=== PATIENT | male | born 1955 | race Caucasian/White ===

== ENCOUNTER 2017-06-03 15:28 | Inpatient (IN) ==
--- NOTE | 2017-06-03 16:13 | Emergency Department Report ---
Nausea/Vomiting/Diarrhea HPI - General Chief complaint: Nausea/Vomiting/Diarrhea <Jorge Wharton Josep Dewey 06/05/17 18:08> Stated complaint: flu like symptoms <Jorge Wharton Josep Dewey 06/05/17 18:08> Time Seen by Provider: 06/03/17 16:00 <Iggy Whartonsusy Dewey 06/05/17 18:08> Source: patient <JakenoeParvin 06/03/17 16:13> - History of Present Illness HPI Narrative: Pt states he has had nausea, vomiting, and diarrhea for the last 5 days. States he had sweats and chills this am but has been feeling fine ever since and that he is here for a note for work. 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 Pt drinks alcohol 2X a week, denies tobacco use <Parvin Douglas 06/03/17 18:16> MD complaint: nausea, vomiting, diarrhea, abdominal pain <Parvin Douglas 06/03/17 18:16> Onset (ago): day(s) <Parvin Douglas 06/03/17 18:16> Description of Vomiting: watery <Parvin Douglas 06/03/17 18:16> Description of Diarrhea: water <Parvin Douglas 06/03/17 18:16> Associated Abdominal Pain: Yes <Parvin Douglas 06/03/17 18:16> Location of pain: periumbilical <Parvin Douglas 06/03/17 18:16> Severity: mild <Parvin Douglas 06/03/17 18:16> Severity scale (1-10): 4 <Parvin Douglas 06/03/17 18:16> Quality: cramping, aching <Parvin Douglas 06/03/17 18:16> Consistency: constant <Parvin Douglas 06/03/17 18:16> Relieving factors: none <Parvin Douglas 06/03/17 18:16> Exacerbating factors: none <Parvin Douglas 06/03/17 18:16> Associated symptoms: fever/chills, loss of appetite <Parvin Douglas 18:16> - Related Data Home Medications Medication Instructions Recorded Confirmed Aspirin 325 mg PO DAILY #0 04/19/11 06/03/17 Ascorbic Acid [Vitamin C] 1,000 mg PO DAILY 06/03/17 06/03/17 Cyanocobalamin (Vitamin B-12) 500 mcg SL DAILY 06/03/17 06/03/17 [Vitamin B-12] HydroCHLOROthiazide [Hydrodiuril] 25 mg PO WB 06/03/17 06/03/17 Multivitamin [Multivitamins] 1 cap PO DAILY 06/03/17 06/03/17 Nebivolol [Bystolic] 5 mg PO DAILY 06/03/17 06/03/17 [place]-3/Dha/Epa/Fish Oil [Fish Oil 1,000 mg PO DAILY 06/03/17 06/03/17 1,000 mg Softgel] <Jorge Wharton - 06/05/17 18:08> Allergies Allergy/AdvReac Type Severity Reaction Status Date / Time No Known Allergies Allergy Verified 06/03/17 15:49 <Jorge Wharton - 06/05/17 18:08> Review of Systems All systems: reviewed and negative except as stated <Parvin Douglas 18:16> Constitutional: Reports: fever, chills, weakness <Parvin Douglas 18:16> Eyes: Denies: eye pain <Parvin Douglas 06/03/17 18:16> ENT: Denies: ear pain, throat pain <Parvin Douglas 06/03/17 18:16> Cardiovascular: Denies: chest pain <Parvin Douglas 06/03/17 18:16> Respiratory: Denies: cough <Parvin Douglas 06/03/17 18:16> Gastrointestinal: Reports: abdominal pain, nausea, vomiting, diarrhea < Parvin Douglas 06/03/17 18:16> Musculoskeletal: Denies: back pain <Parvin Douglas 06/03/17 18:16> Neurological: Reports: weakness. Denies: headache <Parvin Douglas 06/03 18:16> Psychiatric: Denies: anxiety <Parvin Douglas 06/03/17 18:16> Endocrine: Reports: fatigue <Parvin Douglas 06/03/17 18:16> [facility] Patient Stated Medical History Other HEENT Yes: GLASSES Hypertension Yes <Jorge Wharton 06/05/17 18:08> - Social History Smoking status: Never smoker <Parvin Douglas 06/03/17 16:13> Physical Exam - Limitations Limitations: no limitations <Parvin Douglas 06/03/17 18:16> - General General appearance: alert, in no apparent distress <Parvin Douglas 06/03 18:16> - Normal Exams: Head:: Normocephalic without trauma <StellaParvin Day 06/03/17 18:16> Eyes:: Pupils are PERRLA w/ EOMI <Parvin Douglas 06/03/17 18:16> Neck:: Full range of motion, without adenopathy <StellaParvin Day 18:16> Chest/Respirations:: Clear all ruby, with good airflow, and symmetry bilaterally <Parvin Douglas 06/03/17 18:16> Cardiovascular:: Regular rate and rhythm, without murmur or gallop, Pulses 2+ all extremities <Parvin Douglas 06/03/17 18:16> Abdomen:: Bowel sounds positive, soft, non-tender, non-distended (c/o epigastric pain which does not change with palpation) <StellaParvin Day 18:16> Musculoskeletal:: No tenderness, or deformity noted, good range of motion, all extremities <Parvin Douglas 06/03/17 18:16> Integumentary:: No rashes <StellaParvin Day 06/03/17 18:16> Neurological:: Patient is alert, and oriented <JakerebeccakatieParvin Day Maco 06/03/17 18:16> Psychiatric:: Patient exhibits, appropriate attention, emotion and affect < StellaParvin Barb 06/03/17 18:16> Course - Consultations Consultation #1: Corrine <Parvin Douglas - 06/03/17 18:16> Time: 17:30 <Parvin Douglas - 06/03/17 18:16> Vital Signs Temperature 99.1 F 06/03/17 15:30 Pulse Rate 80 06/03/17 15:30 Respiratory Rate 20 06/03/17 15:30 Blood Pressure 148/84 H 06/03/17 15:30 Pulse Oximetry 92 06/03/17 15:30 Temperature 97.1 F 06/05/17 14:50 Pulse Rate 82 06/05/17 17:10 Respiratory Rate 16 06/05/17 14:50 Blood Pressure 125/85 06/05/17 14:50 Pulse Oximetry 97 06/05/17 17:10 <Jorge Wharton 06/05/17 18:08> Nausea/Vomiting/Diarrhea - MDM Narrative Medical decision making narrative: Pt history vs family report has varied throughout stay. Pt states he is feeling much better and just needs a note to return to work. reports pt has had a progressively decreasing appetite and increased weakness. Pt reports he has not had any vomiting for the last 3 days and no diarrhea for the last 2 days however he did have an episode of chills and sweats this am but reports feeling much better since that time. Pt has a waxy pale color to his skin tone and continues to regularly have pursed lipped breathing. Pt denies any smoking history or difficulty breathing only reports that he is doing it because he is "tired". Labs reviewed and show opposing results of elevated BUN with low electrolytes and low osmolality. Additional labs ordered based on current results. Discussed pt assessment and diagnostic findings with Dr Castle who will be admitting pt for continued care. <Parvin Douglas 06/03/17 18:16> - Differential Diagnosis Likely: gastroenteritis, clostridium difficile infection, drug-induced nausea and vomiting, dehydration <Parvin Douglas 06/03/17 18:16> - Lab Data Attestation: I reviewed the patient's lab results. <Parvin Douglas 06/03 18:16> Result diagrams: 06/05/17 03:58 06/05/17 03:58 <Jorge Wharton 06/05/17 18:08> Lab Results 06/03/17 06/03/17 06/03/17 Range/Units 16:08 16:13 16:13 WBC 4.8 (4.5-11.0) T/MM3 RBC 4.43 L (4.50-5.90) M/MM3 Hgb 13.9 (13.5-17.5) GM/DL Hct 38.2 L (41-53) % MCV 86.2 (80-100) UM3 MCH 31.4 (26-34) UUG MCHC 36.4 (31-37) GM/DL RDW Std Deviation 37.7 (36.9-50.2) FL Plt Count 124 L (130-400) T/MM3 MPV 10.6 (9.4-12.4) UM3 Immature Gran % (Auto) 0.6 H (0.0-0.5) % Neut % (Auto) 76.0 H (33-66) % Lymph % (Auto) 15.7 L (23-45) % Ada % (Auto) 7.7 (0-9.0) % Eos % (Auto) 0.0 (0-4) % Baso % (Auto) 0.0 (0-2) % Neut # (Auto) 3.6 (1.8-7.7) T/MM3 Lymph # (Auto) 0.8 L (1-4.8) T/MM3 Ada # (Auto) 0.4 (0-0.8) T/MM3 Eos # (Auto) 0.0 (0-0.5) T/MM3 Baso # (Auto) 0.0 (0-0.2) T/MM3 Abs Immat Gran (auto) 0.03 (0.00-0.03) T/MM3 ABG pH (7.350-7.450) ABG pCO2 (34-45) MMHG ABG pO2 (80-100) MMHG ABG HCO3 (22-26) MEQ/L ABG Total CO2 (23-27) MEQ/L ABG O2 Saturation (95.0-98.0) % ABG Base Excess (-2.0-2.0) MMOL/L O2 Delivery Method Turbidity < 20 (0-20) Sodium 128 L (134-144) MEQ/L Potassium 2.6 L* (3.6-5) MEQ/L Chloride 88 L (98-107) MEQ/L Carbon Dioxide 29 (22-30) MEQ/L Anion Gap 11 (5-15) MEQ/L BUN 26.0 H (9-20) MG/DL Creatinine 1.3 (0.8-1.5) MG/DL GFR Calculation 56 BUN/Creatinine Ratio 20 (6-26) RATIO Glucose 123 H (75-110) MG/DL Glucometer (65-110) mg/dL Calculated Osmolality 253 L (261-280) MOSM/KG Calcium 8.3 L (8.4-10.2) MG/DL Magnesium (1.6-2.3) MG/DL Total Bilirubin 1.30 (0.20-1.30) MG/DL Icterus Index < 2 (0-7) AST 144 H (17-59) U/L ALT 140 H (21-72) U/L Alkaline Phosphatase 108 (38-126) U/L Troponin I (0-0.12) ng/ml Total Protein 6.5 (6.3-8.2) G/DL Albumin 3.3 L (3.5-5.0) G/DL Globulin 3.2 (2.4-3.6) G/DL Albumin/Globulin Ratio 1.0 L (1.1-2.2) RATIO Lipase 563 H (23-300) U/L Procalcitonin NG/ML Specimen Hemolysis < 15 (0-25) 06/03/17 06/03/17 06/03/17 Range/Units 16:13 16:13 18:15 WBC (4.5-11.0) T/MM3 RBC (4.50-5.90) M/MM3 Hgb (13.5-17.5) GM/DL Hct (41-53) % MCV (80-100) UM3 MCH (26-34) UUG MCHC (31-37) GM/DL RDW Std Deviation (36.9-50.2) FL Plt Count (130-400) T/MM3 MPV (9.4-12.4) UM3 Immature Gran % (Auto) (0.0-0.5) % Neut % (Auto) (33-66) % Lymph % (Auto) (23-45) % Ada % (Auto) (0-9.0) % Eos % (Auto) (0-4) % Baso % (Auto) (0-2) % Neut # (Auto) (1.8-7.7) T/MM3 Lymph # (Auto) (1-4.8) T/MM3 Ada # (Auto) (0-0.8) T/MM3 Eos # (Auto) (0-0.5) T/MM3 Baso # (Auto) (0-0.2) T/MM3 Abs Immat Gran (auto) (0.00-0.03) T/MM3 ABG pH 7.630 H* (7.350-7.450) ABG pCO2 28 L (34-45) MMHG ABG pO2 53 L (80-100) MMHG ABG HCO3 30 H (22-26) MEQ/L ABG Total CO2 30.4 H (23-27) MEQ/L ABG O2 Saturation 93.0 L (95.0-98.0) % ABG Base Excess 8.7 H (-2.0-2.0) MMOL/L O2 Delivery Method Room air Turbidity (0-20) Sodium (134-144) MEQ/L Potassium (3.6-5) MEQ/L Chloride (98-107) MEQ/L Carbon Dioxide (22-30) MEQ/L Anion Gap (5-15) MEQ/L BUN (9-20) MG/DL Creatinine (0.8-1.5) MG/DL GFR Calculation BUN/Creatinine Ratio (6-26) RATIO Glucose (75-110) MG/DL Glucometer (65-110) mg/dL Calculated Osmolality (261-280) MOSM/KG Calcium (8.4-10.2) MG/DL Magnesium 2.4 H (1.6-2.3) MG/DL Total Bilirubin (0.20-1.30) MG/DL Icterus Index (0-7) AST (17-59) U/L ALT (21-72) U/L Alkaline Phosphatase (38-126) U/L Troponin I 0.030 (0-0.12) ng/ml Total Protein (6.3-8.2) G/DL Albumin (3.5-5.0) G/DL Globulin (2.4-3.6) G/DL Albumin/Globulin Ratio (1.1-2.2) RATIO Lipase (23-300) U/L Procalcitonin NG/ML Specimen Hemolysis < 15 (0-25) 06/03/17 06/03/17 06/03/17 Range/Units 20:49 20:49 21:26 WBC (4.5-11.0) T/MM3 RBC (4.50-5.90) M/MM3 Hgb (13.5-17.5) GM/DL Hct (41-53) % MCV (80-100) UM3 MCH (26-34) UUG MCHC (31-37) GM/DL RDW Std Deviation (36.9-50.2) FL Plt Count (130-400) T/MM3 MPV (9.4-12.4) UM3 Immature Gran % (Auto) (0.0-0.5) % Neut % (Auto) (33-66) % Lymph % (Auto) (23-45) % Ada % (Auto) (0-9.0) % Eos % (Auto) (0-4) % Baso % (Auto) (0-2) % Neut # (Auto) (1.8-7.7) T/MM3 Lymph # (Auto) (1-4.8) T/MM3 Ada # (Auto) (0-0.8) T/MM3 Eos # (Auto) (0-0.5) T/MM3 Baso # (Auto) (0-0.2) T/MM3 Abs Immat Gran (auto) (0.00-0.03) T/MM3 ABG pH (7.350-7.450) ABG pCO2 (34-45) MMHG ABG pO2 (80-100) MMHG ABG HCO3 (22-26) MEQ/L ABG Total CO2 (23-27) MEQ/L ABG O2 Saturation (95.0-98.0) % ABG Base Excess (-2.0-2.0) MMOL/L O2 Delivery Method Turbidity (0-20) Sodium (134-144) MEQ/L Potassium 2.9 L* (3.6-5) MEQ/L Chloride (98-107) MEQ/L Carbon Dioxide (22-30) MEQ/L Anion Gap (5-15) MEQ/L BUN (9-20) MG/DL Creatinine (0.8-1.5) MG/DL GFR Calculation BUN/Creatinine Ratio (6-26) RATIO Glucose (75-110) MG/DL Glucometer 105 (65-110) mg/dL Calculated Osmolality (261-280) MOSM/KG Calcium (8.4-10.2) MG/DL Magnesium (1.6-2.3) MG/DL Total Bilirubin (0.20-1.30) MG/DL Icterus Index (0-7) AST (17-59) U/L ALT (21-72) U/L Alkaline Phosphatase (38-126) U/L Troponin I (0-0.12) ng/ml Total Protein (6.3-8.2) G/DL Albumin (3.5-5.0) G/DL Globulin (2.4-3.6) G/DL Albumin/Globulin Ratio (1.1-2.2) RATIO Lipase (23-300) U/L Procalcitonin 0.71 NG/ML Specimen Hemolysis < 15 (0-25) 06/04/17 06/04/17 06/04/17 Range/Units 04:31 04:31 04:31 WBC 4.9 (4.5-11.0) T/MM3 RBC 4.44 L (4.50-5.90) M/MM3 Hgb 13.8 (13.5-17.5) GM/DL Hct 39.0 L (41-53) % MCV 87.8 (80-100) UM3 MCH 31.1 (26-34) UUG MCHC 35.4 (31-37) GM/DL RDW Std Deviation 38.8 (36.9-50.2) FL Plt Count 132 (130-400) T/MM3 MPV 10.9 (9.4-12.4) UM3 Immature Gran % (Auto) 0.4 (0.0-0.5) % Neut % (Auto) 71.9 H (33-66) % Lymph % (Auto) 17.5 L (23-45) % Ada % (Auto) 10.0 H (0-9.0) % Eos % (Auto) 0.0 (0-4) % Baso % (Auto) 0.2 (0-2) % Neut # (Auto) 3.5 (1.8-7.7) T/MM3 Lymph # (Auto) 0.9 L (1-4.8) T/MM3 Ada # (Auto) 0.5 (0-0.8) T/MM3 Eos # (Auto) 0.0 (0-0.5) T/MM3 Baso # (Auto) 0.0 (0-0.2) T/MM3 Abs Immat Gran (auto) 0.02 (0.00-0.03) T/MM3 ABG pH (7.350-7.450) ABG pCO2 (34-45) MMHG ABG pO2 (80-100) MMHG ABG HCO3 (22-26) MEQ/L ABG Total CO2 (23-27) MEQ/L ABG O2 Saturation (95.0-98.0) % ABG Base Excess (-2.0-2.0) MMOL/L O2 Delivery Method Turbidity < 20 (0-20) Sodium 129 L (134-144) MEQ/L Potassium 3.1 L (3.6-5) MEQ/L Chloride 92 L (98-107) MEQ/L Carbon Dioxide 31 H (22-30) MEQ/L Anion Gap 6 (5-15) MEQ/L BUN 26.0 H (9-20) MG/DL Creatinine 1.2 (0.8-1.5) MG/DL GFR Calculation 61 BUN/Creatinine Ratio 22 (6-26) RATIO Glucose 108 (75-110) MG/DL Glucometer (65-110) mg/dL Calculated Osmolality 255 L (261-280) MOSM/KG Calcium 8.0 L (8.4-10.2) MG/DL Magnesium 2.6 H (1.6-2.3) MG/DL Total Bilirubin 1.00 (0.20-1.30) MG/DL Icterus Index < 2 (0-7) AST 121 H (17-59) U/L ALT 135 H (21-72) U/L Alkaline Phosphatase 96 (38-126) U/L Troponin I 0.033 (0-0.12) ng/ml Total Protein 6.3 (6.3-8.2) G/DL Albumin 3.0 L (3.5-5.0) G/DL Globulin 3.3 (2.4-3.6) G/DL Albumin/Globulin Ratio 0.9 L (1.1-2.2) RATIO Lipase 602 H (23-300) U/L Procalcitonin 0.70 NG/ML Specimen Hemolysis 18 (0-25) <Jorge Wharton - 06/05/17 18:08> Lab Results 06/03/17 06/03/17 06/03/17 Range/Units 16:08 16:13 16:13 WBC 4.8 (4.5-11.0) T/MM3 RBC 4.43 L (4.50-5.90) M/MM3 Hgb 13.9 (13.5-17.5) GM/DL Hct 38.2 L (41-53) % MCV 86.2 (80-100) UM3 MCH 31.4 (26-34) UUG MCHC 36.4 (31-37) GM/DL RDW Std Deviation 37.7 (36.9-50.2) FL Plt Count 124 L (130-400) T/MM3 MPV 10.6 (9.4-12.4) UM3 Immature Gran % (Auto) 0.6 H (0.0-0.5) % Neut % (Auto) 76.0 H (33-66) % Lymph % (Auto) 15.7 L (23-45) % Ada % (Auto) 7.7 (0-9.0) % Eos % (Auto) 0.0 (0-4) % Baso % (Auto) 0.0 (0-2) % Neut # (Auto) 3.6 (1.8-7.7) T/MM3 Lymph # (Auto) 0.8 L (1-4.8) T/MM3 Ada # (Auto) 0.4 (0-0.8) T/MM3 Eos # (Auto) 0.0 (0-0.5) T/MM3 Baso # (Auto) 0.0 (0-0.2) T/MM3 Abs Immat Gran (auto) 0.03 (0.00-0.03) T/MM3 ABG pH (7.350-7.450) ABG pCO2 (34-45) MMHG ABG pO2 (80-100) MMHG ABG HCO3 (22-26) MEQ/L ABG Total CO2 (23-27) MEQ/L ABG O2 Saturation (95.0-98.0) % ABG Base Excess (-2.0-2.0) MMOL/L O2 Delivery Method Turbidity < 20 (0-20) Sodium 128 L (134-144) MEQ/L Potassium 2.6 L* (3.6-5) MEQ/L Chloride 88 L (98-107) MEQ/L Carbon Dioxide 29 (22-30) MEQ/L Anion Gap 11 (5-15) MEQ/L BUN 26.0 H (9-20) MG/DL Creatinine 1.3 (0.8-1.5) MG/DL GFR Calculation 56 BUN/Creatinine Ratio 20 (6-26) RATIO Glucose 123 H (75-110) MG/DL Glucometer (65-110) mg/dL Calculated Osmolality 253 L (261-280) MOSM/KG Calcium 8.3 L (8.4-10.2) MG/DL Magnesium (1.6-2.3) MG/DL Total Bilirubin 1.30 (0.20-1.30) MG/DL Icterus Index < 2 (0-7) AST 144 H (17-59) U/L ALT 140 H (21-72) U/L Alkaline Phosphatase 108 (38-126) U/L Troponin I (0-0.12) ng/ml Total Protein 6.5 (6.3-8.2) G/DL Albumin 3.3 L (3.5-5.0) G/DL Globulin 3.2 (2.4-3.6) G/DL Albumin/Globulin Ratio 1.0 L (1.1-2.2) RATIO Lipase 563 H (23-300) U/L Procalcitonin NG/ML Specimen Hemolysis < 15 (0-25) 06/03/17 06/03/17 06/03/17 Range/Units 16:13 16:13 18:15 WBC (4.5-11.0) T/MM3 RBC (4.50-5.90) M/MM3 Hgb (13.5-17.5) GM/DL Hct (41-53) % MCV (80-100) UM3 MCH (26-34) UUG MCHC (31-37) GM/DL RDW Std Deviation (36.9-50.2) FL Plt Count (130-400) T/MM3 MPV (9.4-12.4) UM3 Immature Gran % (Auto) (0.0-0.5) % Neut % (Auto) (33-66) % Lymph % (Auto) (23-45) % Ada % (Auto) (0-9.0) % Eos % (Auto) (0-4) % Baso % (Auto) (0-2) % Neut # (Auto) (1.8-7.7) T/MM3 Lymph # (Auto) (1-4.8) T/MM3 Ada # (Auto) (0-0.8) T/MM3 Eos # (Auto) (0-0.5) T/MM3 Baso # (Auto) (0-0.2) T/MM3 Abs Immat Gran (auto) (0.00-0.03) T/MM3 ABG pH 7.630 H* (7.350-7.450) ABG pCO2 28 L (34-45) MMHG ABG pO2 53 L (80-100) MMHG ABG HCO3 30 H (22-26) MEQ/L ABG Total CO2 30.4 H (23-27) MEQ/L ABG O2 Saturation 93.0 L (95.0-98.0) % ABG Base Excess 8.7 H (-2.0-2.0) MMOL/L O2 Delivery Method Room air Turbidity (0-20) Sodium (134-144) MEQ/L Potassium (3.6-5) MEQ/L Chloride (98-107) MEQ/L Carbon Dioxide (22-30) MEQ/L Anion Gap (5-15) MEQ/L BUN (9-20) MG/DL Creatinine (0.8-1.5) MG/DL GFR Calculation BUN/Creatinine Ratio (6-26) RATIO Glucose (75-110) MG/DL Glucometer (65-110) mg/dL Calculated Osmolality (261-280) MOSM/KG Calcium (8.4-10.2) MG/DL Magnesium 2.4 H (1.6-2.3) MG/DL Total Bilirubin (0.20-1.30) MG/DL Icterus Index (0-7) AST (17-59) U/L ALT (21-72) U/L Alkaline Phosphatase (38-126) U/L Troponin I 0.030 (0-0.12) ng/ml Total Protein (6.3-8.2) G/DL Albumin (3.5-5.0) G/DL Globulin (2.4-3.6) G/DL Albumin/Globulin Ratio (1.1-2.2) RATIO Lipase (23-300) U/L Procalcitonin NG/ML Specimen Hemolysis < 15 (0-25) 06/03/17 06/03/17 06/03/17 Range/Units 20:49 20:49 21:26 WBC (4.5-11.0) T/MM3 RBC (4.50-5.90) M/MM3 Hgb (13.5-17.5) GM/DL Hct (41-53) % MCV (80-100) UM3 MCH (26-34) UUG MCHC (31-37) GM/DL RDW Std Deviation (36.9-50.2) FL Plt Count (130-400) T/MM3 MPV (9.4-12.4) UM3 Immature Gran % (Auto) (0.0-0.5) % Neut % (Auto) (33-66) % Lymph % (Auto) (23-45) % Ada % (Auto) (0-9.0) % Eos % (Auto) (0-4) % Baso % (Auto) (0-2) % Neut # (Auto) (1.8-7.7) T/MM3 Lymph # (Auto) (1-4.8) T/MM3 Ada # (Auto) (0-0.8) T/MM3 Eos # (Auto) (0-0.5) T/MM3 Baso # (Auto) (0-0.2) T/MM3 Abs Immat Gran (auto) (0.00-0.03) T/MM3 ABG pH (7.350-7.450) ABG pCO2 (34-45) MMHG ABG pO2 (80-100) MMHG ABG HCO3 (22-26) MEQ/L ABG Total CO2 (23-27) MEQ/L ABG O2 Saturation (95.0-98.0) % ABG Base Excess (-2.0-2.0) MMOL/L O2 Delivery Method Turbidity (0-20) Sodium (134-144) MEQ/L Potassium 2.9 L* (3.6-5) MEQ/L Chloride (98-107) MEQ/L Carbon Dioxide (22-30) MEQ/L Anion Gap (5-15) MEQ/L BUN (9-20) MG/DL Creatinine (0.8-1.5) MG/DL GFR Calculation BUN/Creatinine Ratio (6-26) RATIO Glucose (75-110) MG/DL Glucometer 105 (65-110) mg/dL Calculated Osmolality (261-280) MOSM/KG Calcium (8.4-10.2) MG/DL Magnesium (1.6-2.3) MG/DL Total Bilirubin (0.20-1.30) MG/DL Icterus Index (0-7) AST (17-59) U/L ALT (21-72) U/L Alkaline Phosphatase (38-126) U/L Troponin I (0-0.12) ng/ml Total Protein (6.3-8.2) G/DL Albumin (3.5-5.0) G/DL Globulin (2.4-3.6) G/DL Albumin/Globulin Ratio (1.1-2.2) RATIO Lipase (23-300) U/L Procalcitonin 0.71 NG/ML Specimen Hemolysis < 15 (0-25) 06/04/17 06/04/17 06/04/17 Range/Units 04:31 04:31 04:31 WBC 4.9 (4.5-11.0) T/MM3 RBC 4.44 L (4.50-5.90) M/MM3 Hgb 13.8 (13.5-17.5) GM/DL Hct 39.0 L (41-53) % MCV 87.8 (80-100) UM3 MCH 31.1 (26-34) UUG MCHC 35.4 (31-37) GM/DL RDW Std Deviation 38.8 (36.9-50.2) FL Plt Count 132 (130-400) T/MM3 MPV 10.9 (9.4-12.4) UM3 Immature Gran % (Auto) 0.4 (0.0-0.5) % Neut % (Auto) 71.9 H (33-66) % Lymph % (Auto) 17.5 L (23-45) % Ada % (Auto) 10.0 H (0-9.0) % Eos % (Auto) 0.0 (0-4) % Baso % (Auto) 0.2 (0-2) % Neut # (Auto) 3.5 (1.8-7.7) T/MM3 Lymph # (Auto) 0.9 L (1-4.8) T/MM3 Ada # (Auto) 0.5 (0-0.8) T/MM3 Eos # (Auto) 0.0 (0-0.5) T/MM3 Baso # (Auto) 0.0 (0-0.2) T/MM3 Abs Immat Gran (auto) 0.02 (0.00-0.03) T/MM3 ABG pH (7.350-7.450) ABG pCO2 (34-45) MMHG ABG pO2 (80-100) MMHG ABG HCO3 (22-26) MEQ/L ABG Total CO2 (23-27) MEQ/L ABG O2 Saturation (95.0-98.0) % ABG Base Excess (-2.0-2.0) MMOL/L O2 Delivery Method Turbidity < 20 (0-20) Sodium 129 L (134-144) MEQ/L Potassium 3.1 L (3.6-5) MEQ/L Chloride 92 L (98-107) MEQ/L Carbon Dioxide 31 H (22-30) MEQ/L Anion Gap 6 (5-15) MEQ/L BUN 26.0 H (9-20) MG/DL Creatinine 1.2 (0.8-1.5) MG/DL GFR Calculation 61 BUN/Creatinine Ratio 22 (6-26) RATIO Glucose 108 (75-110) MG/DL Glucometer (65-110) mg/dL Calculated Osmolality 255 L (261-280) MOSM/KG Calcium 8.0 L (8.4-10.2) MG/DL Magnesium 2.6 H (1.6-2.3) MG/DL Total Bilirubin 1.00 (0.20-1.30) MG/DL Icterus Index < 2 (0-7) AST 121 H (17-59) U/L ALT 135 H (21-72) U/L Alkaline Phosphatase 96 (38-126) U/L Troponin I 0.033 (0-0.12) ng/ml Total Protein 6.3 (6.3-8.2) G/DL Albumin 3.0 L (3.5-5.0) G/DL Globulin 3.3 (2.4-3.6) G/DL Albumin/Globulin Ratio 0.9 L (1.1-2.2) RATIO Lipase 602 H (23-300) U/L Procalcitonin 0.70 NG/ML Specimen Hemolysis 18 (0-25) <Parvin Douglas Barb 06/03/17 18:16> - Radiology Data Attestation: I reviewed the patient's radiology results. <Parvin Douglas 06/03/17 18:16> - EKG Data EKG #1 EKG attestation: Yes: I reviewed and interpreted this EKG. <Jorge Wharton 18:31> Yes: I reviewed and interpreted this EKG. <Parvin Douglas 06/03/17 18:16> EKG results narrative: Sinus rhythm. 81 bpm. Right bundle branch block. No STEMI. <Jorge Wharton 06/03/17 18:31> EKG shows normal: sinus rhythm <Parvin Douglas 06/03/17 18:16> Ferdinand/QRS: RBBB <Parvin Douglas 06/03/17 18:16> Disposition Clinical Impression: Gastroenteritis, Hypokalemia <Jorge Wharton 06/05/17 18:08> Disposition: 02 To [facility] [place] Acute Care <Jorge Wharton 06/05/17 18:08> Condition: Stable <Jorge Wharton 06/05/17 18:08> Instructions: <Jorge Wharton 06/05/17 18:08> Prescriptions: No Action Cyanocobalamin (Vitamin B-12) [Vitamin B-12] 500 mcg SL DAILY HydroCHLOROthiazide [Hydrodiuril] 25 mg PO WB Ascorbic Acid [Vitamin C] 1,000 mg PO DAILY [place]-3/Dha/Epa/Fish Oil [Fish Oil 1,000 mg Softgel] 1,000 mg PO DAILY Aspirin 325 mg PO DAILY #0 Multivitamin [Multivitamins] 1 cap PO DAILY Nebivolol [Bystolic] 5 mg PO DAILY <Jorge Wharton 06/05/17 18:08> Referrals: Bg De Anda MD [Family Provider] - <Jorge Wharton 18:08> Forms: <Jorge Wharton 06/05/17 18:08> Time of Disposition: 18:16 <Parvin Douglas - 06/03/17 18:16> - Seen By: midlevel <Parvin Douglas - 06/03/17 18:16> Addendum entered and electronically signed by Parvin Douglas APRN 18:17:
[2017-06-03] MEDS: SALINE FLUSH 10ml SYRINGE IV PRN ×2 (16:18→18:28)
--- OUTSIDE RECORDS SUMMARY | 2017-06-03 16:23 | External Medical Summary | Referral Summary ---
:1955 Author Organization [facility], [facility] Address [address] [place] [address] [place] Valenzuela [id number] Care Team Providers Name Role Phone Bg De Anda Primary Care Physician Encounter [facility] [id number] Date(s): 05/19/15 - 05/19/15 [facility] [place] [address] [place] [phone] [place] Discharge Disposition: 01-Home or Self Care Attending Physician: Bg De Anda MD Admitting Physician: Bg De Anda MD Vital Signs Most recent to oldest [Reference Range]: 1 Peripheral Pulse Rate [60-100 bpm] 56 bpm *LOW* (05/19/15 8:29 AM) Blood Pressure [90-140/60-90 mmHg] 140/90 mmHg (05/19/15 8:29 AM) Problem List Condition Effective Dates Status Health Status Informant Acquired Active spondylolisthesis(Confirmed) Back pain(Confirmed) Active Back pain(Confirmed) Active Benign essential HTN(Confirmed) Active BPH (benign prostatic Active hyperplasia)(Confirmed) Diverticulitis(Confirmed) Resolved Hypertension(Confirmed) Resolved previous laminectomy(Confirmed) Resolved Elevated cholesterol(Confirmed) Active Thoracic or lumbosacral neuritis or Active radiculitis, unspecified(Confirmed) Allergies, Adverse Reactions, Alerts No Known Allergies Medications aspirin 325 mg, Oral, Daily, 0 Refill(s) Start Date: 02/04/14 Status: OrderedBystolic 5 mg oral tablet See Instructions, TAKE ONE TABLET BY MOUTH ONCE DAILY, # 90 tabs, [facility]Rx: [id number], TAKE ONE TABLET BY MOUTH ONCE DAILY Start Date: 11/07/15 Status: OrderedChondroitin-Glucosamine 1 caps, Oral, Daily, 0 Refill(s) Start Date: 02/04/14 Status: Orderedcyclobenzaprine 10 mg oral tablet 1 tabs, Oral, TID, as needed for spasm, # 60 tabs, 0 Refill(s), Pharmacy: [id number], 1 tabs Oral TID,PRN:as needed for spasm Start Date: 02/05/14 Status: OrderedFish Oil 1000 mg oral capsule 1 caps, Oral, Daily, 0 Refill(s) Start Date: 02/04/14 Status: OrderedHYDROCHLOROT 25MG TAB See Instructions, TAKE ONE TABLET BY MOUTH ONCE DAILY, # 90 tabs, eRx: [id number], TAKE ONE TABLET BY MOUTH ONCE DAILY Start Date: 11/07/15 Status: Orderedhydrochlorothiazide 25 mg oral tablet See Instructions, TAKE ONE TABLET BY MOUTH ONCE DAILY, # 90 tabs, eRx: [id number], TAKE ONE TABLET BY MOUTH ONCE DAILY Start Date: 08/11/15 Status: Orderedmultivitamin See Instructions, Daily, 0 Refill(s) Start Date: 02/04/14 Status: OrderedNorco 5 mg-325 mg oral tablet 1-2 tabs, Oral, TID, as needed for pain, MUST LAST 30 DAYS, # 60 tabs, 0 Refill( s) Start Date: 11/07/15 Status: Ordered Results Hematology Most recent to oldest [Reference Range]: 1 WBC [4.8-10.8 10*3/uL] 4.9 10*3/uL (05/19/15 9:00 AM) RBC [4.60-6.20] 5.02 (05/19/15 9:00 AM) Hgb [14.0-18.0 gm/dL] 15.7 gm/dL (05/19/15 9:00 AM) Hct [42.0-52.0 %] 45.4 % (05/19/15 9:00 AM) MCV [82.0-99.0 fL] 90.4 fL (05/19/15 9:00 AM) MCH [27.0-32.0 pg] 31.3 pg (05/19/15 9:00 AM) MCHC [32.0-36.0 gm/dL] 34.6 gm/dL (05/19/15 9:00 AM) RDW [11.5-14.5 %] 12.7 % (05/19/15 9:00 AM) Platelet [150-400 10*3/uL] 190 10*3/uL (05/19/15 9:00 AM) MPV [8.8-14.8 fL] 10.3 fL (05/19/15 9:00 AM) Immature Granulocytes [0.0-1.0 %] 0.0 % (05/19/15 9:00 AM) Neutrophils [51-75 %] 54 % (05/19/15 9:00 AM) Lymphocytes [20-46 %] 34 % (05/19/15 9:00 AM) Monocytes [4-11 %] 9 % (05/19/15 9:00 AM) Eosinophils [0-4 %] 2 % (05/19/15:00 AM) Basophils [0-2 %] 1 % (05/19/15 9:00 AM) Neutro Absolute [1.90-7.00 10*3] 2.67 10*3 (05/19/15 9:00 AM) Lymph Absolute [0.80-3.30 10*3] 1.67 10*3 (05/19/15 9:00 AM) [place] Absolute [0.30-1.00 10*3] 0.43 10*3 (05/19/15 9:00 AM) Eos Absolute [0.00-0.50 10*3] 0.11 10*3 (05/19/15 9:00 AM) Baso Absolute [0.00-0.20 10*3] 0.04 10*3 (05/19/15 9:00 AM) Chemistry Most recent to oldest [Reference Range]: 1 Sodium Lvl [135-144 mEq/L] 142 mEq/L (05/19/15 9:00 AM) Potassium Lvl [3.5-5.2 mEq/L] 4.6 mEq/L (05/19/15 9:00 AM) Chloride [99-111 mEq/L] 108 mEq/L (05/19/15 9:00 AM) CO2 [23-31 mEq/L] 26 mEq/L (05/19/15 9:00 AM) AGAP [3-20] 8 (05/19/15 9:00 AM) BUN [8-26 mg/dL] 15 mg/dL (05/19/15 9:00 AM) Glucose Lvl [70-99 mg/dL] 103 mg/dL *HI* (05/19/15 9:00 AM) Creatinine Lvl [0.72-1.25 mg/dL] 0.98 mg/dL (05/19/15 9:00 AM) eGFR [>60 mL/min] >60 mL/min 1 (05/19/15 9:00 AM) Calcium Lvl [8.9-10.5 mg/dL] 9.8 mg/dL (05/19/15 9:00 AM) Albumin Lvl [3.4-4.8 gm/dL] 4.3 gm/dL (05/19/15 9:00 AM) Total Protein [6.2-8.1 gm/dL] 6.6 gm/dL (05/19/15 9:00 AM) Globulin [1.8-4.0 gm/dL] 2.3 gm/dL (05/19/15 9:00 AM) ALT [0-55 U/L] 27 U/L (05/19/15 9:00 AM) AST [5-34 U/L] 22 U/L (05/19/15 9:00 AM) Alk Phos [40-150 U/L] 79 U/L (05/19/15 9:00 AM) Bili Total [0.2-1.2 mg/dL] 1.3 mg/dL *HI* (05/19/15 9:00 AM) PSA (wihout Reflex Free) [0.0-4.5 ng/mL] 1.5 ng/mL 2 (05/19/15 9:00 AM) Chol [0-199 mg/dL] 207 mg/dL *HI* (05/19/15 9:00 AM) Trig [0-149 mg/dL] 116 mg/dL (05/19/15 9:00 AM) HDL [40-84 mg/dL] 50 mg/dL (05/19/15 9:00 AM) LDL [0-130 mg/dL] 134 mg/dL *HI* (05/19/15 9:00 AM) VLDL Cholesterol [0-28 mg/dL] 23 mg/dL (05/19/15 9:00 AM) Cardiac Risk [0.0-5.7] 4.1 (05/19/15 9:00 AM) 1Result Comment: Multiply eGFR results by 1.21 for race.2Result Comment: AUA PSA Best Practice Guidelines: Age-Adjusted PSA Values by Ethnic Group Age Range Asians - Caucasians Americans 40-49 0-2.0 0-2.0 0-2.5 50-59 0-3.0 0-4.0 0-3.5 60-69 0-4.0 0-4.5 0-4.5 70-79 0-5.0 0-5.5 0-6.5Urinalysis Most recent to oldest [Reference Range]: 1 UA Color Yellow (05/19/15 9:00 AM) UA Appear Clear (05/19/15 9:00 AM) UA pH [5.0-8.0] 6.0 (05/19/15 9:00 AM) UA Leuk Est [Negative] Negative (05/19/15 9:00 AM) UA Nitrite [Negative] Negative (05/19/15 9:00 AM) UA Protein [Negative] Trace *ABN* (05/19/15 9:00 AM) UA Glucose [Negative] Negative (05/19/15 9:00 AM) UA Ketones [Negative] Negative (05/19/15 9:00 AM) UA Urobilinogen [<1.0 mg/dL] 0.2 mg/dL (05/19/15 9:00 AM) UA Bili [Negative] Negative (05/19/15 9:00 AM) UA Blood [Negative] Negative (05/19/15 9:00 AM) UA Spec Grav [1.003-1.030] 1.010 (05/19/15 9:00 AM) Type Voided (05/19/15 9:00 AM) Immunizations Vaccine Date Refusal Reason zoster vaccine live 05/30/14 Procedures Procedure Date Related Diagnosis Body Site Collection of venous blood by venipuncture 05/19/15 Collection of venous blood by venipuncture 05/19/15 Collection of venous blood by venipuncture 05/19/15 History of knee surgery - bilateral 1991 Arthroscopy of knee Colostomy History of back surgery Micro Discectomy Tonsillectomy Social History Social History Type Response Smoking Status Former smoker; Type: Cigarettes Assessment and Plan Extracted from: Title: Ambulatory Patient Education Author: Bg De Anda MD Date: 05/19 Family Medicine Cholesterol Cholesterol is a white, waxy, fat-like substance needed by your body in small amounts. The liver makes all the cholesterol you need. Cholesterol is carried from the liver by the blood through the blood vessels. Deposits of cholesterol (plaque) may build up on blood vessel bell. These make the arteries narrower and stiffer. Cholesterol plaques increase the risk for heart attack and stroke. You cannot feel your cholesterol level even if it is very high. The only way to know it is high is with a blood test. Once you know your cholesterol levels, you should keep a record of the test results. Work with your health care provider to keep your levels in the desired range. WHAT DO THE RESULTS MEAN? Total cholesterol is a rough measure of all the cholesterol in your blood. LDL is the so-called bad cholesterol. This is the type that deposits cholesterol in the bell of the arteries. You want this level to be low. HDL is the good cholesterol because it cleans the arteries and carries the LDL away. You want this level to be high. Triglycerides are fat that the body can either burn for energy or store. High levels are closely linked to heart disease. WHAT ARE THE DESIRED LEVELS OF CHOLESTEROL? Total cholesterol below 200. LDL below 100 for people at risk, below 70 for those at very high risk. HDL above 50 is good, above 60 is best. Triglycerides below 150. HOW CAN I LOWER MY CHOLESTEROL? Diet. Follow your diet programs as directed by your health care provider. Choose fish or white meat chicken and turkey, roasted or baked. Limit fatty cuts of red meat, fried foods, and processed meats, such as sausage and lunch meats. Eat lots of fresh fruits and vegetables. Choose whole grains, beans, pasta, potatoes, and cereals. Use only small amounts of olive, corn, or canola oils. Avoid butter, mayonnaise, shortening, or palm kernel oils. Avoid foods with trans fats. Drink skim or nonfat milk and eat low-fat or nonfat yogurt and cheeses. Avoid whole milk, cream, ice cream, egg yolks, and full-fat cheeses. Healthy desserts include ke food cake, agatha snaps, animal crackers, hard candy, popsicles, and low-fat or nonfat frozen yogurt. Avoid pastries, cakes, pies, and cookies. Exercise. Follow your exercise programs as directed by your health care provider. A regular program helps decrease LDL and raise HDL. A regular program helps with weight control. Do things that increase your activity level like gardening, walking, or taking the stairs. Ask your health care provider about how you can be more active in your daily life. Medicine. Take medicine only as directed by your health care provider. Medicine may be prescribed by your health care provider to help lower cholesterol and decrease the risk for heart disease. If you have several risk factors, you may need medicine even if your levels are normal. Document Released: 04/19/2002 Document Revised: 12/09/2014 Document Reviewed: 05/08/2014 [facility] [place] Patient Information 2015 [employer]. This information is not intended to replace advice given to you by your health care provider. Make sure you discuss any questions you have with your health care provider. No follow up information was provided. Extracted from: Title: Office Visit Note Author: Bg De Anda MD Date: 05/19/15 Assessment/Plan Back pain This issue is stable and appropriate refills, lab, and f/u have been discussed. BPH (benign prostatic hyperplasia) This issue is stable and appropriate refills, lab, and f/u have been discussed. General medical exam No restrictions. Forms completed. Lab pending. High cholesterol This issue is stable and appropriate refills, lab, and f/u have been discussed. Ordered: Lipid Panel HTN (hypertension) This issue is stable and appropriate refills, lab, and f/ u have been discussed. The patient reports their blood pressure has been stable at home and is not having any significa nt or related problems. There has been no chest pain, chest pressure, soa/nur. Ordered: CBC w/ Differential Comprehensive Metabolic Panel Urinalysis with Culture if Indicated Screening PSA (prostate specific antigen) See above. Ordered: Prostate Specific Antigen
--- OUTSIDE RECORDS SUMMARY | 2017-06-03 16:23 | External Medical Summary | Referral Summary ---
:1955 Author Organization [facility] Address [address] [place] [address] [place] Valenzuel[place] [address] Care Team Providers Name Role Phone Bg De Anda Primary Care Physician Encounter [facility] Date(s): 07/06/16 - 07/06/16 [facility] [address] [place] [address] [place] [phone] [place] Discharge Diagnosis: Visit for suture removal Discharge Disposition: 01-Home or Self Care Attending Physician: Cathleen Hidalgo APRN Admitting Physician: Cathleen Hidalgo APRN Referring Physician: Bg De Anda MD Vital Signs Most recent to oldest [Reference Range]: 1 Temperature Tympanic [36.6-38.1 degC] 36.6 degC (07/06/16 11:21 AM) Problem List Condition Effective Dates Status Health Status Informant Acquired Active spondylolisthesis(Confirmed) Back pain(Confirmed) Active Back pain(Confirmed) Active Benign essential HTN(Confirmed) Active BPH (benign prostatic Active hyperplasia)(Confirmed) Abnormal blood sugar(Confirmed) Active Diverticulitis(Confirmed) Resolved Hypertension(Confirmed) Resolved previous laminectomy(Confirmed) Resolved Elevated cholesterol(Confirmed) Active Thoracic or lumbosacral neuritis or Active radiculitis, unspecified(Confirmed) Allergies, Adverse Reactions, Alerts No Known Allergies Medications aspirin 325 mg, Oral, Daily, 0 Refill(s) Start Date: 02/04/14 Status: OrderedBystolic 5 mg oral tablet 5 mg 1 tabs, Oral, Daily, X 90 days, # 90 tabs, 1 Refill(s), Pharmacy: [id number], 1 tabs Oral Daily,x90 days Start Date: 05/27/16 Stop Date: 11/23/16 Status: OrderedChondroitin-Glucosamine 1 caps, Oral, Daily, 0 Refill(s) Start Date: 02/04/14 Status: Orderedcyclobenzaprine 10 mg oral tablet 10 mg 1 tabs, Oral, TID, as needed for spasm, # 60 tabs, 0 Refill(s), Pharmacy: [id number], 1 tabs Oral TID,PRN:as needed for spasm Start Date: 05/27/16 Status: OrderedFish Oil 1000 mg oral capsule 1 caps, Oral, Daily, 0 Refill(s) Start Date: 02/04/14 Status: Orderedhydrochlorothiazide 25 mg oral tablet See Instructions, TAKE ONE TABLET BY MOUTH ONCE DAILY, # 90 tabs, 1 Refill(s), Pharmacy: [id number], TAKE ONE TABLET BY MOUTH ONCE DAILY Start Date: 05/27/16 Status: Orderedmultivitamin See Instructions, Daily, 0 Refill(s) Start Date: 02/04/14 Status: OrderedNorco 5 mg-325 mg oral tablet 1-2 tabs, Oral, TID, as needed for pain, MUST LAST 30 DAYS, # 60 tabs, 0 Refill( s) Start Date: 07/06/16 Status: Ordered Results No data available for this section Immunizations Vaccine Date Refusal Reason zoster vaccine live 05/30/14 Procedures Procedure Date Related Diagnosis Body Site History of knee surgery - bilateral 1991 Arthroscopy of knee Colostomy History of back surgery Micro Discectomy Tonsillectomy Social History Social History Type Response Smoking Status Former smoker; Type: Cigarettes Assessment and Plan Extracted from: Title: Ambulatory Patient Education Author: Cathleen Hidalgo FENCE MACHINE OPERATOR Date: Procedures Suture Removal, Care After Refer to this sheet in the next few weeks. These instructions provide you with information on caring for yourself after your procedure. Your health care provider may also give you more specific instruct ions. Your treatment has been planned according to current medical practices, but problems sometimes occur. Call your health care provider if you have any problems or questions after your procedure. WHAT TO EXPECT AFTER THE PROCEDURE After your stitches (sutures) are removed, it is typical to have the following: Some discomfort and swelling in the wound area. Slight redness in the area. HOME CARE INSTRUCTIONS If you have skin adhesive strips over the wound area, do not take the strips off. They will fall off on their own in a few days. If the strips remain in place after 14 days, you may remove them. Change any bandages (dressings) at least once a day or as directed by your health care provider. If the bandage sticks, soak it off with warm, soapy water. Apply cream or ointment only as directed by your health care provider. If using cream or ointment, wash the area with soap and water 2 times a day to remove all the cream or ointment. Rinse off the soap and pat the area dry with a clean towel. Keep the wound area dry and clean. If the bandage becomes wet or dirty, or if it develops a bad smell, change it as soon as possible. Continue to protect the wound from injury. Use sunscreen when out in the sun. New scars become sunburned easily. SEEK MEDICAL CARE IF: You have increasing redness, swelling, or pain in the wound. You see pus coming from the wound. You have a fever. You notice a bad smell coming from the wound or dressing. Your wound breaks open (edges not staying together). This information is not intended to replace advice given to you by your health care provider. Make sure you discuss any questions you have with your health care provider. Document Released: 04/19/2002 Document Revised: 05/15/2014 Document Reviewed: 03/06/2014 [employer] Patient Education 2016 [employer] No follow up information was provided. Extracted from: Title: Office Visit Note Author: Cathleen Hidalgo APRN Date: 07/06/16 Assessment/Plan 1.Visit for suture removal Pathology indicates actinic keratosiswith verruca's features. Not press sent at sampled margins. Return to our office if you have anysurgical or dermatologic concerns. Continue with general medical care through your primary care physician. Ordered: Postoperative Est [id number]
--- OUTSIDE RECORDS SUMMARY | 2017-06-03 16:23 | External Medical Summary | Referral Summary ---
:1955 Author Organization [facility], [facility] Address [address] [place] [address] [place] Valenzuela [phone] Care Team Providers Name Role Phone Bg De Anda Primary Care Physician Encounter [facility] [id number] Date(s): 05/27/16 - 05/27/16 [facility] [address] [place] [phone] [place] Discharge Diagnosis: Benign essential HTN Discharge Diagnosis: Change in mole Discharge Diagnosis: BPH (benign prostatic hyperplasia) Discharge Diagnosis: Abnormal blood sugar Discharge Diagnosis: Back pain Discharge Diagnosis: Elevated cholesterol Discharge Diagnosis: Adult general medical exam Discharge Disposition: -Home or Self Care Attending Physician: Bg De Anda MD Admitting Physician: Bg De Anda MD Vital Signs Most recent to oldest [Reference Range]: 1 Blood Pressure [90-140/60-90 mmHg] 140/90 mmHg (05/27/16 10:04 AM) Problem List Condition Effective Dates Status [...] days, # 90 tabs, 1 Refill(s), Pharmacy: [id number], 1 tabs Oral Daily,x90 days Start Date: 05/27/16 Stop Date: 11/23/16 Status: OrderedChondroitin-Glucosamine 1 caps, Oral, Daily, 0 Refill(s) Start Date: 02/04/14 Status: Orderedcyclobenzaprine 10 mg oral tablet 10 mg 1 tabs, Oral, TID, as needed for spasm, # 60 tabs, 0 Refill(s), Pharmacy: [id number], 1 tabs Oral TID,PRN:as needed for spasm Start Date: 05/27/16 Status: OrderedFish Oil 1000 mg oral capsule 1 caps, Oral, Daily, 0 Refill(s) Start Date: 02/04/14 Status: Orderedhydrochlorothiazide 25 mg oral tablet See Instructions, TAKE ONE TABLET BY MOUTH ONCE DAILY, # 90 tabs, 1 Refill(s), Pharmacy: [id number], TAKE ONE TABLET BY MOUTH ONCE DAILY Start Date: 05/27/16 Status: Orderedmultivitamin See Instructions, Daily, 0 Refill(s) Start Date: 02/04/14 Status: OrderedNorco 5 mg-325 mg oral tablet 1-2 tabs, Oral, TID, as needed for pain, MUST LAST 30 DAYS, # 60 tabs, 0 Refill( s) Start Date: 05/07/16 Status: Ordered Results Hematology Most recent to oldest [Reference Range]: 1 WBC [4.8-10.8 10*3/uL] 6.2 10*3/uL (05/27/16 10:30 AM) RBC [4.60-6.20] 5.12 (05/27/16 10:30 AM) Hgb [14.0-18.0 gm/dL] 15.8 gm/dL (05/27/16 10:30 AM) Hct [42.0-52.0 %] 45.7 % (05/27/16 10:30 AM) MCV [82.0-99.0 fL] 89.3 fL (05/27/16 10:30 AM) MCH [27.0-32.0 pg] 30.9 pg (05/27/16 10:30 AM) MCHC [32.0-36.0 gm/dL] 34.6 gm/dL (05/27/16 10:30 AM) RDW [11.5-14.5 %] 12.6 % (05/27/16 10:30 AM) Platelet [150-400 10*3/uL] 191 10*3/uL (05/27/16 10:30 AM) MPV [8.8-14.8 fL] 9.7 fL (05/27/16 10:30 AM) Immature Granulocytes [0.0-1.0 %] 0.3 % (05/27/16 10:30 AM) Neutrophils [51-75 %] 62 % (05/27/16 10:30 AM) Lymphocytes [20-46 %] 28 % (05/27/16 10:30 AM) Monocytes [4-11 %] 9 % (05/27/16 10:30 AM) Eosinophils [0-4 %] 1 % (05/27/16 10:30 AM) Basophils [0-2 %] 1 % (05/27/16 10:30 AM) Neutro Absolute [1.90-7.00 10*3] 3.86 10*3 (05/27/16 10:30 AM) Lymph Absolute [0.80-3.30 10*3] 1.73 10*3 (05/27/16 10:30 AM) [place] Absolute [0.30-1.00 10*3] 0.54 10*3 (05/27/16 10:30 AM) Eos Absolute [0.00-0.50 10*3] 0.05 10*3 (05/27/16 10:30 AM) Baso Absolute [0.00-0.20 10*3] 0.03 10*3 (05/27/16 10:30 AM) Chemistry Most recent to oldest [Reference Range]: 1 Sodium Lvl [135-144 mEq/L] 142 mEq/L (05/27/16 10:30 AM) Potassium Lvl [3.5-5.2 mEq/L] 3.9 mEq/L (05/27/16 10:30 AM) Chloride [99-111 mEq/L] 104 mEq/L (05/27/16 10:30 AM) CO2 [23-31 mEq/L] 29 mEq/L (05/27/16 10:30 AM) AGAP [3-20] 9 (05/27/16 10:30 AM) BUN [8-26 mg/dL] 15 mg/dL (05/27/16 10:30 AM) Glucose Lvl [70-99 mg/dL] 102 mg/dL *HI* (05/27/16 10:30 AM) Creatinine Lvl [0.72-1.25 mg/dL] 0.99 mg/dL (05/27/16 10:30 AM) eGFR [>60 mL/min] >60 mL/min 1 (05/27/16 10:30 AM) Calcium Lvl [8.9-10.5 mg/dL] 9.4 mg/dL (05/27/16 10:30 AM) Albumin Lvl [3.4-4.8 gm/dL] 4.3 gm/dL (05/27/16 10:30 AM) Total Protein [6.0-7.6 gm/dL] 6.3 gm/dL (05/27/16 10:30 AM) Globulin [1.8-4.0 gm/dL] 2.0 gm/dL (05/27/16 10:30 AM) ALT [0-55 U/L] 27 U/L (05/27/16 10:30 AM) AST [5-34 U/L] 22 U/L (05/27/16 10:30 AM) Alk Phos [40-150 U/L] 87 U/L (05/27/16 10:30 AM) Bili Total [0.2-1.2 mg/dL] 1.1 mg/dL (05/27/16 10:30 AM) PSA (wihout Reflex Free) [0.0-4.5 ng/mL] 1.8 ng/mL 2 (05/27/16 10:30 AM) Chol [0-199 mg/dL] 182 mg/dL (05/27/16 10:30 AM) Trig [0-149 mg/dL] 215 mg/dL *HI* (05/27/16 10:30 AM) HDL [40-84 mg/dL] 49 mg/dL (05/27/16 10:30 AM) LDL [0-130 mg/dL] 90 mg/dL (05/27/16 10:30 AM) VLDL Cholesterol [0-28 mg/dL] 43 mg/dL *HI* (05/27/16 10:30 AM) Cardiac Risk [0.0-5.7] 3.7 (05/27/16 10:30 AM) TSH with Reflex Free T4 [0.35-4.94] 0.87 (05/27/16 10:30 AM) 1Result Comment: Multiply eGFR results by 1.21 for race.2Result Comment: AUA PSA Best Practice Guidelines: Age-Adjusted PSA Values by Ethnic Group Age Range Asians - Caucasians Americans 40-49 0-2.0 0-2.0 0-2.5 50-59 0-3.0 0-4.0 0-3.5 60-69 0-4.0 0-4.5 0-4.5 70-79 0-5.0 0-5.5 0-6.5Urinalysis Most recent to oldest [Reference Range]: 1 UA Color Yellow (05/27/16 10:46 AM) UA Appear Clear (05/27/16 10:46 AM) UA pH [5.0-8.0] 7.0 (05/27/16 10:46 AM) UA Leuk Est [Negative] Negative (05/27/16 10:46 AM) UA Nitrite [Negative] Negative (05/27/16 10:46 AM) UA Protein [Negative] Negative (05/27/16 10:46 AM) UA Glucose [Negative] Negative (05/27/16 10:46 AM) UA Ketones [Negative] Negative (05/27/16 10:46 AM) UA Urobilinogen [<1.0 mg/dL] 0.2 mg/dL (05/27/16 10:46 AM) UA Bili [Negative] Negative (05/27/16 10:46 AM) UA Blood [Negative] Negative (05/27/16 10:46 AM) UA Spec Grav [1.003-1.030] 1.009 (05/27/16 10:46 AM) Type Voided (05/27/16 10:46 AM) Immunizations Vaccine Date Refusal Reason zoster vaccine live 05/30/14 Procedures Procedure Date Related Diagnosis Body Site Collection of venous blood by venipuncture 05/27/16 History of knee surgery - bilateral 1991 Arthroscopy of knee Colostomy History of back surgery Micro Discectomy Tonsillectomy Social History Social History Type Response Smoking Status Former smoker; Type: Cigarettes Assessment and Plan Extracted from: Title: Ambulatory Patient Education Author: Bg De Anda MD Date: 05/27 Musculoskeletal Back Pain, Adult Back pain is very common in adults.The cause of back pain is rarely dangerous and the pain often gets better over time.The cause of your back pain may not be known. Some common causes of back pain include: Strain of the muscles or ligaments supporting the spine. Wear and tear (degeneration) of the spinal disks. Arthritis. Direct injury to the back. For many people, back pain may return. Since back pain is rarely dangerous, most people can learn to manage this condition on their own. HOME CARE INSTRUCTIONS Watch your back pain for any changes. The following actions may help to lessen any discomfort you are feeling: Remain active. It is stressful on your back to sit or medical terminologist one place for long periods of time. Do not sit, drive, or medical terminologist one place for more than 30 minutes at a time. Take short walks on even surfaces as soon as you are able.Try to increase the length of time you walk each day. Exercise regularly as directed by your health care provider. Exercise helps your back heal faster. It also helps avoid future injury by keeping your muscles strong and flexible. Do not stay in bed.Resting more than 12 days can delay your recovery. Pay attention to your body when you bend and lift. The most comfortable positions are those that put less stress on your recovering back. Always use proper lifting techniques, including: Bending your knees. Keeping the load close to your body. Avoiding twisting. Find a comfortable position to sleep. Use a firm mattress and lie on your side with your knees slightly bent. If you lie on your back, put a pillow under your knees. Avoid feeling anxious or stressed.Stress increases muscle tension and can worsen back pain.It is important to recognize when you are anxious or stressed and learn ways to manage it, such as with exercise. Take medicines only as directed by your health care provider. Over-the- counter medicines to reduce pain and inflammation are often the most helpful. Your health care provider may prescribe muscl e relaxant drugs.These medicines help dull your pain so you can more quickly return to your normal activities and healthy exercise. Apply ice to the injured area: Put ice in a plastic bag. Place a towel between your skin and the bag. Leave the ice on for 20 minutes, 23 times a day for the first 23 days. After that, ice and heat may be alternated to reduce pain and spasms. Maintain a healthy weight. Excess weight puts extra stress on your back and makes it difficult to maintain good posture. SEEK MEDICAL CARE IF: You have pain that is not relieved with rest or medicine. You have increasing pain going down into the legs or buttocks. You have pain that does not improve in one week. You have night pain. You lose weight. You have a fever or chills. SEEK IMMEDIATE MEDICAL CARE IF: You develop new bowel or bladder control problems. You have unusual weakness or numbness in your arms or legs. You develop nausea or vomiting. You develop abdominal pain. You feel faint. This information is not intended to replace advice given to you by your health care provider. Make sure you discuss any questions you have with your health care provider. Document Released: 07/25/2006 Document Revised: 08/15/2015 Document Reviewed: 11/26/2014 [employer] Interactive Patient Education 2016 [employer] No follow up information was provided. Extracted from: Title: Office Visit Note Author: Bg De Anda MD Date: 05/27/16 Assessment/Plan Abnormal blood sugar This issue was reviewed, appears stable, and current therapy continued except as mentioned. Appropriate lab was reviewed from the most recent appropriate entry and lab was order ed if needed in the cpoe/nursing orders, and follow up recommended generally in 90 days and no later then six months. Lab pending. Adult general medical exam Forms completed and returned. Back pain This issue was reviewed, appears stable, and current therapy continued except as mentioned. Appropriate lab was reviewed from the most recent appropriate entry and lab was ordered if neede d in the cpoe/nursing orders, and follow up recommended generally in 90 days and no later then six months. Has norco forpain. Impression: 1: Recently seen large L2-3 disc extrusion is no longer present. There is degenerative disc disease at this level with broad-based posterior disc bulge and mild narrowing of the neural foramen bilaterally. 2: There is degenerative disc disease and degenerative facet arthropathy at L3-4 with mild stenosis of the canal and lateral recesses. This has shown some mild progression since 2009 3: Degenerative disc disease with mild retrolisthesis at the L1-2 level. There is posterior disc bulge which is eccentric to the left, causing mild narrowing of the left neural foramen. 4: Degenerative disc disease, posterior disc bulge and degenerative facet arthropathy at L4-5 with mild narrowing of the neural foramen bilaterally [1 ] Benign essential HTN This issue was reviewed, appears stable, and current therapy continued except as mentioned. Appropriate lab was reviewed from the most recent appropriate entry and lab was order ed if needed in the cpoe/nursing orders, and follow up recommended generally in 90 days and no later then six months. The patient reports their blood pressure has been stable at home and is not having any significant or related problems. There has been no chest pain, chest pressure, soa/nur. Samples of the new medication were provided as a courtesy. Side effects were discussed and follow up was recommended. Bystolic given as a courtesy. BPH (benign prostatic hyperplasia) This issue was reviewed, appears stable, and current therapy continued except as mentioned. Appropriate lab was reviewed from the most recent appropriate entry and lab was ordered if needed in the cpoe/nursing orders, and follow up recommended generally in 90 days and no later then six months. Change in mole To Dr. GONZALES for excision. Elevated cholesterol This issue was reviewed, appears stable, and current therapy continued except as mentioned. Appropriate lab was reviewed from the most recent appropriate entry and lab was order ed if needed in the cpoe/nursing orders, and follow up recommended generally in 90 days and no later then six months. Lab pending.
--- OUTSIDE RECORDS SUMMARY | 2017-06-03 16:23 | External Medical Summary | Referral Summary ---
:1955 Author Organization [facility] Address [address] [place] [address] [place] Val[place] [address] Care Team Providers Name Role Phone Bg De Anda Primary Care Physician Encounter [facility] [id number] Date(s): 06/23/16 - 06/23/16 [facility] [address] [place] [address] [place] [phone] [place] Discharge Diagnosis: Changing pigmented skin lesion Discharge Disposition: 01-Home or Self Care Attending Physician: Josh Deleon MD Admitting Physician: Josh Deleon MD Referring Physician: gB De Anda MD Vital Signs Most recent to oldest [Reference Range]: 1 Temperature Tympanic [36.6-38.1 degC] 36.9 degC (06/23/16 1:50 PM) Peripheral Pulse Rate [60-100 bpm] 67 bpm (06/23/16 1:50 PM) Blood Pressure [90-140/60-90 mmHg] 150/72 mmHg *HI* (06/23/16 1:50 PM) SpO2 97 % (06/23/16 1:50 PM) Problem List Condition Effective Dates Status Health [...] days, # 90 tabs, 1 Refill(s), Pharmacy: [id number], 1 tabs Oral Daily,x90 days Start Date: 05/27/16 Stop Date: 11/23/16 Status: OrderedChondroitin-Glucosamine 1 caps, Oral, Daily, 0 Refill(s) Start Date: 02/04/14 Status: Orderedcyclobenzaprine 10 mg oral tablet 10 mg 1 tabs, Oral, TID, as needed for spasm, # 60 tabs, 0 Refill(s), Pharmacy: [id number], 1 tabs Oral TID,PRN:as needed for spasm Start Date: 05/27/16 Status: OrderedFish Oil 1000 mg oral capsule 1 caps, Oral, Daily, 0 Refill(s) Start Date: 02/04/14 Status: Orderedhydrochlorothiazide 25 mg oral tablet See Instructions, TAKE ONE TABLET BY MOUTH ONCE DAILY, # 90 tabs, 1 Refill(s), Pharmacy: [id number], TAKE ONE TABLET BY MOUTH ONCE DAILY Start Date: 05/27/16 Status: Orderedmultivitamin See Instructions, Daily, 0 Refill(s) Start Date: 02/04/14 Status: OrderedNorco 5 mg-325 mg oral tablet 1-2 tabs, Oral, TID, as needed for pain, MUST LAST 30 DAYS may refill 06/06/16 , # 60 tabs, 0 Refill(s) Start Date: 06/04/16 Status: Ordered Results No data available for [...] Extracted from: Title: Ambulatory Patient Education Author: Josh Deleon MD Date: Procedures Excision of Skin Lesions Excision of a skin lesion refers to the removal of a section of skin by making small cuts (incisions) in the skin. This is typically done to remove a cancerous growth (basal cell carcinoma, squamous yong l carcinoma, or melanoma) or a noncancerous growth (cyst). It may be done to treat or prevent cancer or infection. It may also be done to improve cosmetic appearance (removal of mole, skin tag). LET YOUR CAREGIVER KNOW ABOUT: Allergies to food or medicine. Medicines taken, including vitamins, herbs, eyedrops, gffe-[id number] medicines, and creams. Use of steroids (by mouth or creams). Previous problems with anesthetics or numbing medicines. History of bleeding problems or blood clots. History of any prostheses. Previous surgery. Other health problems, including diabetes and kidney problems. Possibility of , if this applies. RISKS AND COMPLICATIONS Many complications can be managed. With appropriate treatment and rehabilitation, the following complications are very uncommon: Bleeding. Infection. Scarring. Recurrence of cyst or cancer. Changes in skin sensation or appearance (discoloration, swelling). Reaction to anesthesia. Allergic reaction to surgical materials or ointments. Damage to nerves, blood vessels, muscles, or other structures. Continued pain. BEFORE THE PROCEDURE It is important to follow your caregiver's instructions prior to your procedure to avoid complications. Steps before your procedure may include: Physical exam, blood tests, other procedures, such as removing a small sample for examination under a microscope (biopsy). Your caregiver may review the procedure, the anesthesia being used, and what to expect after the procedure with you. You may be asked to: Stop taking certain medicines, such as blood thinners (including aspirin , clopidogrel, ibuprofen), for several days prior to your procedure. Take certain medicines. Stop smoking. It is a good idea to arrange for a ride home after surgery and to have someone to help you with activities during recovery. PROCEDURE There are several excision techniques. The type of excision or surgical technique used will depend on your condition, the location of the lesion, and your overall health. After the lesion is sterilized and a local anesthetic is applied, the following may be performed: Complete surgical excision The area to be removed is marked with a pen. Using a small scalpel and scissors , the surgeon gently cuts around and under the lesion until it is completely removed. The lesion is placed in a special flu id and sent to the lab for examination. If necessary, bleeding will be controlled with a device that delivers heat. The edges of the wound are stitched together and a dressing is applied. This procedure may be performed to treat a cancerous growth or noncancerous cyst or lesion. Surgeons commonly perform an elliptical excision, to minimize scarring. Excision of a cyst The surgeon makes an incision on the cyst. The entire cyst is removed through the incision. The wound may be closed with a suture (stitch). Shave excision During shave excision, the surgeon uses a small blade or loop instrument to shave off the lesion. This may be done to remove a mole or skin tag. The wound is usually left to heal on its own without stitches. Punch excision During punch excision, the surgeon uses a small, round tool (like a cookie cutter) to cut a [place] shape out of the skin. The outer edges of the skin are stitched together. This may be done to remove a mole or scar or to perform a biopsy of the lesion. Mohs micrographic surgery During Mohs micrographic surgery, layers of the lesion are removed with a scalpel or loop instrument and immediately examined under a microscope until all of the abnormal or cancerous tissue is removed. This procedure is minimally invasive and ensures the best cosmetic outcome, with removal of as little normal tissue as possible. Mohs is usually done to treat skin cancer, such as basal cell carcinoma or squamous cell carcinoma, particularly on the face and ears. Antibiotic ointment is applied to the surgical area after each of the procedures listed above, as necessary. AFTER THE PROCEDURE How well you heal depends on many factors. Most patients heal quite well with proper techniques and self-care. Scarring will lessen over time. HOME CARE INSTRUCTIONS Take medicines for pain as directed. Keep the incision area clean, dry, and protected for at least 48 hours. Change dressings as directed. For bleeding, apply gentle but firm pressure to the wound using a folded towel for 20 minutes. Call your caregiver if bleeding does not stop. Avoid high-impact exercise and activities until the stitches are removed or the area heals. Follow your caregiver's instructions to minimize scarring. Avoid sun exposure until the area has healed. Scarring should lessen over time. Follow up with your caregiver as directed. Removal of stitches within 4 to 14 days may be necessary. Finding out the results of your test Not all test results are available during your visit. If your test results are not back during the visit, make an appointment with your caregiver to find out the results. Do not assume everything is nor mal if you have not heard from your caregiver or the medical facility. It is important for you to follow up on all of your test results. SEEK MEDICAL CARE IF: You or your child has an oral temperature above 102 F (38.9 C). You develop signs of infection (chills, feeling unwell). You notice bleeding, pain, discharge, redness, or swelling at the incision site. You notice skin irregularities or changes in sensation. MAKE SURE YOU: Understand these instructions. Will watch your condition. Will get help right away if you are not doing well or get worse. FOR MORE INFORMATION [employer]: www.aafp.org [employer]: www.aad.org This information is not intended to replace advice given to you by your health care provider. Make sure you discuss any questions you have with your health care provider. Document Released: 10/19/2010 Document Revised: 10/16/2012 Document Reviewed: 09/10/2015 [employer] Interactive Patient Education 2016 [employer] No follow up information was provided. Extracted from: Title: Office Visit Note Author: Josh Deleon MD Date: 06/23/16 Assessment/Plan 1.Changing pigmented skin lesion Ordered: Office Visit Level 3 New [address]96 Plan:Excisional biopsy ofSkin lesioninvolvingright cheek I did review the patient's chart include office note performed by his PCP from May 27, 2016.I informed the patient that I would recommend excising this skin lesioninvolving his right c heek secondary to his historyof this skin lesionchangingin its sizeand secondary to its overall appearance. Patient understood and wished to proceed. The area of concern was prepped an d draped in sterile fashion. One percent lidocaine with epinephrine was injected circumferentially around the skin lesion. The lesion was excised in a standard elliptical fashion. The elliptical incisio n was 1.0 cm in width and 2.0 cm in length. The incision was closed in layers with 4-0 Vicryl subcuticular stitches and 4-0 Prolene for skin edges. The patient was given post excision instruction and told to return to the clinic in 10-14 days, or sooner if any concerns arise.
--- OUTSIDE RECORDS SUMMARY | 2017-06-03 16:23 | External Medical Summary | Referral Summary ---
:1955 Author Organization [facility] Address [address] [place] [address] [place] [address] Care Team Providers Name Role Phone Bg De Anda Primary Care Physician Encounter [facility] [phone] Date(s): 01/02/15 - 01/02/15 [facility] [address] [place] [phone] [place] Discharge Disposition: 01-Home or Self Care Attending Physician: Bg De Anda MD Admitting Physician: Bg De Anda MD Vital Signs Most recent to oldest [Reference Range]: 1 Blood Pressure [90-140/60-90 mmHg] 110/80 mmHg (01/02/15 1:12 PM) Problem List Condition Effective Dates Status [...] Daily, 0 Refill(s) Start Date: 02/04/14 Status: OrderedChondroitin-Glucosamine 1 caps, Oral, Daily, 0 Refill(s) Start Date: 02/04/14 Status: Orderedcyclobenzaprine 10 mg oral tablet 1 tabs, Oral, TID, as needed for spasm, # 60 tabs, 0 Refill(s), Pharmacy: [id number], 1 tabs Oral TID,PRN:as needed for spasm Start Date: 02/05/14 Status: OrderedFish Oil 1000 mg oral capsule 1 caps, Oral, Daily, 0 Refill(s) Start Date: 02/04/14 Status: Orderedmultivitamin See Instructions, Daily, 0 Refill(s) Start Date: 02/04/14 Status: OrderedNorco 5 mg-325 mg oral tablet 1-2 tabs, Oral, TID, as needed for pain, MUST LAST 30 DAYS, # 60 tabs, 0 Refill( s) Start Date: 07/07/15 Status: Ordered Results No data available for [...] Education Author: Bg De Anda MD Date: Family Medicine Arterial Hypertension Arterial hypertension (high blood pressure ) is a condition of elevated pressure in your blood vessels. Hypertension over a long period of time is a risk factor for strokes, heart attacks, and heart lotus lure. It is also the leading cause of kidney (renal ) failure. CAUSES In Adults -- Over 90% of all hypertension has no known cause. This is called essential or primary hypertension. In the other 10% of people with hypertension, the increase in blood pressure is cause d by another disorder. This is called secondary hypertension . Important causes of secondary hypertension are: Heavy alcohol use. Obstructive sleep apnea. Hyperaldosterosim (Conn's syndrome). Steroid use. Chronic kidney failure. Hyperparathyroidism. Medications. Renal artery stenosis. Pheochromocytoma. [place]'s disease. Coarctation of the aorta. Scleroderma renal crisis. Licorice (in excessive amounts). Drugs (cocaine, methamphetamine). Your caregiver can explain any items above that apply to you. In Children -- Secondary hypertension is more common and should always be considered. -- Few women of childbearing age have high blood pressure. However, up to 10% of them develop hypertension of . Generally, this will not harm the woman. It may be a sign of 3 com plications of : preeclampsia, HELLP syndrome, and eclampsia. Follow up and control with medication is necessary. SYMPTOMS This condition normally does not produce any noticeable symptoms. It is usually found during a routine exam. Malignant hypertension is a late problem of high blood pressure. It may have the following symptoms: Headaches. Blurred vision. End-organ damage (this means your kidneys, heart, lungs, and other organs are being damaged). Stressful situations can increase the blood pressure. If a person with normal blood pressure has their blood pressure go up while being seen by their caregiver, this is often termed "white coat hyp ertension." Its importance is not known. It may be related with eventually developing hypertension or complications of hypertension. Hypertension is often confused with mental tension, stress, and anxiety. DIAGNOSIS The diagnosis is made by 3 separate blood pressure measurements. They are taken at least 1 week apart from each other. If there is organ damage from hypertension, the diagnosis may be made without repeat measurements. Hypertension is usually identified by having blood pressure readings: Above 140/90 mmHg measured in both arms, at 3 separate times, over a couple weeks. Over 130/80 mmHg should be considered a risk factor and may require treatment in patients with diabetes. Blood pressure readings over 120/80 mmHg are called "pre-hypertension" even in non-diabetic patients. To get a true blood pressure measurement, use the following guidelines. Be aware of the factors that can alter blood pressure readings. Take measurements at least 1 hour after caffeine. Take measurements 30 minutes after smoking and without any stress. This is another reason to quit smoking it raises your blood pressure. Use a proper cuff size. Ask your caregiver if you are not sure about your cuff size. Most home blood pressure cuffs are automatic. They will measure systolic and diastolic pressures. The systolic pressure is the pressure reading at the start of sounds. Diastolic pressure is the pre ssure at which the sounds disappear. If you are elderly, measure pressures in multiple postures. Try sitting, lying or standing. Sit at rest for a minimum of 5 minutes before taking measurements. You should not be on any medications like decongestants. These are found in many cold medications. Record your blood pressure readings and review them with your caregiver. If you have hypertension: Your caregiver may do tests to be sure you do not have secondary hypertension (see "causes" above). Your caregiver may also look for signs of metabolic syndrome. This is also called Syndrome X or Insulin Resistance Syndrome. You may have this syndrome if you have type 2 diabetes, abdominal obesit y, and abnormal blood lipids in addition to hypertension. Your caregiver will take your medical and family history and perform a physical exam. Diagnostic tests may include blood tests (for glucose, cholesterol, potassium, and kidney function), a urinalysis, or an EKG. Other tests may also be necessary depending on your condition. PREVENTION There are important lifestyle issues that you can adopt to reduce your chance of developing hypertension: Maintain a normal weight. Limit the amount of salt (sodium ) in your diet. Exercise often. Limit alcohol intake. Get enough potassium in your diet. Discuss specific advice with your caregiver. Follow a DASH diet (dietary approaches to stop hypertension). This diet is rich in fruits, vegetables, and low-fat dairy products, and avoids certain fats. PROGNOSIS Essential hypertension cannot be cured. Lifestyle changes and medical treatment can lower blood pressure and reduce complications. The prognosis of secondary hypertension depends on the underlying cause . Many people whose hypertension is controlled with medicine or lifestyle changes can live a normal, healthy life. RISKS AND COMPLICATIONS While high blood pressure alone is not an illness, it often requires treatment due to its short- and long-term effects on many organs. Hypertension increases your risk for: CVAs or strokes (cerebrovascular accident ). Heart failure due to chronically high blood pressure (hypertensive cardiomyopathy ). Heart attack (myocardial infarction ). Damage to the retina (hypertensive retinopathy ). Kidney failure (hypertensive nephropathy ). Your caregiver can explain list items above that apply to you. Treatment of hypertension can significantly reduce the risk of complications. TREATMENT For overweight patients, weight loss and regular exercise are recommended. Physical fitness lowers blood pressure. Mild hypertension is usually treated with diet and exercise. A diet rich in fruits and vegetables, fat-free dairy products, and foods low in fat and salt (sodium ) can help lower blood pressure. De creasing salt intake decreases blood pressure in a 1/3 of people. Stop smoking if you are a smoker. The steps above are highly effective in reducing blood pressure. While these actions are easy to suggest, they are difficult to achieve. Most patients with moderate or severe hypertension end up requiri ng medications to bring their blood pressure down to a normal level. There are several classes of medications for treatment. Blood pressure pills ( antihypertensives ) will lower blood pressure by their different actions. Lowering the blood pressure by 10 mmHg may decrease the risk of complications by as much as 25%. The goal of treatment is effective blood pressure control. This will reduce your risk for complications. Your caregiver will help you determine the best treatment for you according to your lifestyle. Wh at is excellent treatment for one person, may not be for you. HOME CARE INSTRUCTIONS Do not smoke. Follow the lifestyle changes outlined in the "Prevention" section. If you are on medications, follow the directions carefully. Blood pressure medications must be taken as prescribed. Skipping doses reduces their benefit. It also puts you at risk for problems. Follow up with your caregiver, as directed. If you are asked to monitor your blood pressure at home, follow the guidelines in the "Diagnosis" section above. SEEK MEDICAL CARE IF: You think you are having medication side effects. You have recurrent headaches or lightheadedness. You have swelling in your ankles. You have trouble with your vision. SEEK IMMEDIATE MEDICAL CARE IF: You have sudden onset of chest pain or pressure, difficulty breathing, or other symptoms of a heart attack. You have a severe headache. You have symptoms of a stroke (such as sudden weakness, difficulty speaking, difficulty walking). MAKE SURE YOU: Understand these instructions. Will watch your condition. Will get help right away if you are not doing well or get worse. Document Released: 07/25/2006 Document Revised: 10/16/2012 Document Reviewed: 02/22/2008 [facility] Patient Information 2014 [employer]. No follow up information was provided. Extracted from: Title: Office Visit Note Author: Bg De Anda MD Date: 01/02/15 Assessment/Plan Back pain This issue is stable and appropriate refills, lab, and f/u have been discussed. [place] refilled. A work/school note was offered and deferred by the patient. The patient has family members present who are agreeable with today's plan and have no additional concerns or requests. Benign essential HTN This issue is stable and appropriate refills, lab, and f /u have been discussed. The patient reports their blood pressure has been stable at home and is not having any signifi cant or related problems. There has been no chest pain, chest pressure, soa/ nur. Elevated cholesterol This issue is stable and appropriate refills, lab, and f /u have been discussed. Lab declined until February. Orders: hydrochlorothiazide, 25 mg 1 tabs, Oral, Daily, X 90 days, # 90 tabs , 1 Refill(s), Pharmacy: [id number], 1 tabs Oral Daily,x90 days HYDROcodone-acetaminophen, 1-2 tabs, Oral, TID, as needed for pain, MUST LAST 30 DAYS, # 60 tabs, 0 Refill(s) nebivolol, 5 mg 1 tabs, Oral, Daily, X 90 days, # 90 tabs, 1 Refill(s), Pharmacy: [id number], 1 tabs Oral Daily,x90 days Addendum by Bg De Anda MD on December Samples of bystolic given asa courtesy. 2014 13:43:41 CDT
--- OUTSIDE RECORDS SUMMARY | 2017-06-03 16:23 | External Medical Summary | Referral Summary ---
:1955 Author Organization [facility] Address [address] [place] [address] [place] [phone] Care Team Providers Name Role Phone Bg De Anda Primary Care Physician Encounter [facility] [id number] Date(s): 05/19/15 - 05/19/15 [facility] [address] [place] [phone] [place] Discharge Disposition: [...] days, # 90 tabs, 1 Refill(s), Pharmacy: [id number], 1 tabs Oral Daily,x90 days Start Date: 01/02/15 Stop Date: 07/01/15 Status: OrderedChondroitin-Glucosamine 1 caps, Oral, Daily, 0 Refill(s) Start Date: 02/04/14 Status: Orderedcyclobenzaprine 10 mg oral tablet 1 tabs, Oral, TID, as needed for spasm, # 60 tabs, 0 Refill(s), Pharmacy: [id number], 1 tabs Oral TID,PRN:as needed for spasm Start Date: 02/05/14 Status: OrderedFish Oil 1000 mg oral capsule 1 caps, Oral, Daily, 0 Refill(s) Start Date: 02/04/14 Status: Orderedhydrochlorothiazide 25 mg oral tablet 25 mg 1 tabs, Oral, Daily, X 90 days, # 90 tabs, 1 Refill(s), Pharmacy: [id number], 1 tabs Oral Daily,x90 days Start Date: 01/02/15 Stop Date: 07/01/15 Status: Orderedmultivitamin See Instructions, Daily, 0 Refill(s) Start Date: 02/04/14 Status: OrderedNorco 5 mg-325 mg oral tablet 1-2 tabs, Oral, TID, as needed for pain, MUST LAST 30 DAYS, # 60 tabs, 0 Refill( s) Start Date: 05/05/15 Status: Ordered Results Hematology Most recent to [...] (05/19/15:00 AM) Basophils [0-2 %] 1 % (05/19/15:00 AM) Neutro Absolute [1.90-7.00 10*3] 2.67 10*3 (05/19/15 9:00 AM) Lymph Absolute [0.80-3.30 10*3] 1.67 10*3 (05/19/15 9:00 AM) [place] Absolute [0.30-1.00 10*3] 0.43 10*3 (05/19/15 9:00 [...] 04/19/2002 Document Revised: 12/09/2014 Document Reviewed: 05/08/2014 ExitCare Patient Information 2015 [employer]. This information is not intended to replace [...]
--- OUTSIDE RECORDS SUMMARY | 2017-06-03 16:23 | External Medical Summary | Referral Summary ---
:1955 Author Organization [facility], [facility] Address [address] [place] [address] [place] [address] Care Team Providers Name Role Phone Bg De Anda Primary Care Physician Encounter [facility] [id number] Date(s): 02/05/16 - 02/05/16 [facility] [address] [place] [phone] [place] Discharge Disposition: 01-Home or Self Care Attending Physician: Bg De Anda MD Admitting Physician: Bg De Anda MD Vital Signs Most recent to oldest [Reference Range]: 1 Blood Pressure [90-140/60-90 mmHg] 128/80 mmHg (02/05/16 1:12 PM) Problem List Condition Effective Dates [...] days, # 90 tabs, 1 Refill(s), Pharmacy: [id number], 1 tabs Oral Daily,x90 days Start Date: 02/05/16 Stop Date: 08/03/16 Status: OrderedChondroitin-Glucosamine 1 caps, Oral, Daily, 0 Refill(s) Start Date: 02/04/14 Status: Orderedcyclobenzaprine 10 mg oral tablet 1 tabs, Oral, TID, as needed for spasm, # 60 tabs, 0 Refill(s), Pharmacy: [id number], 1 tabs Oral TID,PRN:as needed for spasm Start Date: 02/05/14 Status: OrderedFish Oil 1000 mg oral capsule 1 caps, Oral, Daily, 0 Refill(s) Start Date: 02/04/14 Status: OrderedHYDROCHLOROT 25MG TAB See Instructions, TAKE ONE TABLET BY MOUTH ONCE DAILY, # 90 tabs, eRx: [id number], TAKE ONE TABLET BY MOUTH ONCE DAILY Start Date: 11/07/15 Status: Orderedhydrochlorothiazide 25 mg oral tablet See Instructions, TAKE ONE TABLET BY MOUTH ONCE DAILY, # 90 tabs, eRx: [id number], TAKE ONE TABLET BY MOUTH ONCE DAILY Start Date: 08/11/15 Status: Orderedmultivitamin See Instructions, Daily, 0 Refill(s) Start Date: 02/04/14 Status: OrderedNorco 5 mg-325 mg oral tablet 1-2 tabs, Oral, TID, as needed for pain, MUST LAST 30 DAYS, # 60 tabs, 0 Refill( s) Start Date: 02/05/16 Status: Ordered Results No data available for [...] Bg De Anda MD Date: Family Medicine Back Exercises Back exercises help treat and prevent back injuries. The goal of back exercises is to increase the strength of your abdominal and back muscles and the flexibility of your back. These exercises should be started when you no longer have back pain. Back exercises include: Pelvic Tilt. Lie on your back with your knees bent. Tilt your pelvis until the lower part of your back is against the floor. Hold this position 5 to 10 sec and repeat 5 to 10 times. Knee to Chest. Pull first 1 knee up against your chest and hold for 20 to 30 seconds, repeat this with the other knee, and then both knees. This may be done with the other leg straight or bent, whichever feels better. Sit-Ups or Curl-Ups. Bend your knees 90 degrees. Start with tilting your pelvis, and do a partial, slow sit-up, lifting your trunk only 30 to 45 degrees off the floor. Take at least 2 to 3 second s for each sit-up. Do not do sit-ups with your knees out straight. If partial sit-ups are difficult, simply do the above but with only tightening your abdominal muscles and holding it as directed. Hip-Lift. Lie on your back with your knees flexed 90 degrees. Push down with your feet and shoulders as you raise your hips a couple inches off the floor; hold for 10 seconds, repeat 5 to 10 times. Back arches. Lie on your stomach, propping yourself up on bent elbows. Slowly press on your hands, causing an arch in your low back. Repeat 3 to 5 times. Any initial stiffness and discomfort should lessen with repetition over time. Shoulder-Lifts. Lie face down with arms beside your body. Keep hips and torso pressed to floor as you slowly lift your head and shoulders off the floor. Do not overdo your exercises, especially in the beginning. Exercises may cause you some mild back discomfort which lasts for a few minutes; however, if the pain is more severe, or lasts for more than 15 minutes, do not continue exercises until you see your caregiver. Improvement with exercise therapy for back problems is slow. See your caregivers for assistance with developing a proper back exercise program. This information is not intended to replace advice given to you by your health care provider. Make sure you discuss any questions you have with your health care provider. Document Released: 09/01/2005 Document Revised: 10/16/2012 Document Reviewed: 05/25/2012 ExitCare Patient Information 2016 [employer]. No follow up information was provided. Extracted from: Title: Office Visit Note Author: Bg De Anda MD Date: 02/05/16 Assessment/Plan Abnormal blood sugar This issue was reviewed, appears stable, and current therapy continued except as mentioned. Appropriate lab was reviewed from the most recent appropriate entry and lab was order ed if needed in the cpoe/nursing orders, and follow up recommended generally in 90 days and no later then six months. Lab pending. A work/school note was offered and deferred by the patient. T he patient has family members present who are agreeable with today's plan and have no additional concerns or requests. here. Back pain This issue was reviewed, appears stable, and current therapy continued except as mentioned. Appropriate lab was reviewed from the most recent appropriate entry and lab was ordered if n eeded in the cpoe/nursing orders, and follow up recommended generally in 90 days and no later then six months. [place] refilled. Impression: 1: Recently seen large L2-3 disc [...] discussed and follow up was recommended. Bystolic samples and voucher given as a courtesy. BPH (benign prostatic hyperplasia) This issue was reviewed, appears stable, and current therapy continued except as mentioned. Appropriate lab was reviewed from the most recent appropriate entry and lab was ordered if needed in the cpoe/nursing orders, and follow up recommended generally in 90 days and no later then six months. Lab pending. Elevated cholesterol This issue was reviewed, appears stable, and current therapy continued except as mentioned. Appropriate lab was reviewed from the most recent appropriate entry and lab was order ed if needed in the cpoe/nursing orders, and follow up recommended generally in 90 days and no later then six months. Lab pending.
[2017-06-03] MEDS: POTASSIUM CHLORIDE PREMIX 10 MEQ/100 ML BAG IV SCH ×4 (17:32→21:09)
--- NOTE | 2017-06-03 18:17 | History & Physical Report ---
<Kallie Hutchison - Last Filed: 06/03/17 18:25> History of Present Illness Date: 06/03/17 Chief complaint: N/V, weakness HPI: Song Martins is a 61 y/o who became sick with n/v/d and abd pain on 05/28/17. He was actually seen by Dr. De Anda on 05/26 for a routine physical, and wonders if he might have picked up a bug there. Despite the GI losses his has been encouraging plenty of water and gatorade, even an ensure now and then. He's had no appetite whatsoever even though his has offered a variety of dining options. Not sure if he's lost weight. He's had a little diarrhea - no blood seen in either stools or emesis. Last BM was around 05/31/17. He's had subjective fevers/chills. His abdominal pain was severe at first - tended to bother him just above his umbilicus and epigastric. He described it as cramping. No problems with indigestion or reflux; he has not had previous abdominal pain assoc. with dietary intake. He denies any sinus problems, allergies. No cough/congestion. Despite feeling very weak and slightly dizzy he has not had any falls/trauma. He denies any visual changes. No dysuria or urinary urgency/frequency. He denies leg swelling. He denies any focal neuro deficits or paresthesias. With treatment failure at home and worsening sx, his Nikia brought him to [facility] ED on 06/03/17. CBC was unremarkable. Electrolytes were abnormal: Na low at 128, K low at 2.6 - these were replaced in the ED. Platelets were low at 124; AST was elevated at 144, AST high at 140. Lipase was high at 563. CXR was unremarkable. EKG was negative for acute ischemic changes. Given his presentation Dr. Castle was notified and the patient was admitted to observation for treatment of his electrolyte disturbances. Review of Systems All systems PM: 10-point ROS was reviewed, no additional remarkable complaints except - Constitutional Constitutional: Present: as per HPI - EENMT Eyes: Present: as per HPI Nose: Present: as per HPI Mouth/Throat: Present: as per HPI - Cardiovascular Cardiovascular: Absent: chest pain - Respiratory Respiratory: Present: as per HPI - Gastrointestinal Gastrointestinal: Present: as per HPI - Genitourinary Genitourinary: Present: as per HPI - Integumentary/Breasts Integumentary: Absent: rash - Neurological Neurological: Present: as per HPI - Psychiatric Psychiatric: Absent: depression, hallucinations - Endocrine Endocrine: Present: as per HPI - Allergic/Immunologic Allergic/Immunologic: Present: as per HPI PFSH HTN BPH Back pain Surgical History: Knee arthroscopy 1991. Tonsillectomy. Discectomy. Colon resection, colostomy, with reversal in 2010 (Dr. Jewell) Family History: Mother still living - HTN Father of [place] and liver failure. - Social History Smoking status: Former smoker Packs per day: 3 Packs-years: 120 Quit date: 05/17/11 Substance use type: does not use Alcohol intake frequency: a few times a week (12 beers in 1 sitting - about 2 days per week) Household members: spouse Current occupational status: employed (local owner operator truck driver) Medications Home Medications Medication Instructions Recorded Confirmed Type Aspirin 325 mg PO DAILY #0 04/19/11 06/03/17 History Ascorbic Acid [Vitamin C] 1,000 mg PO DAILY 06/03/17 06/03/17 History Cyanocobalamin (Vitamin B-12) 500 mcg SL DAILY 06/03/17 06/03/17 History [Vitamin B-12] HydroCHLOROthiazide [Hydrodiuril] 25 mg PO WB 06/03/17 06/03/17 History Multivitamin [Multivitamins] 1 cap PO DAILY 06/03/17 06/03/17 History Nebivolol [Bystolic] 5 mg PO DAILY 06/03/17 06/03/17 History Lockhart-3/Dha/Epa/Fish Oil [Fish Oil 1,000 mg PO DAILY 06/03/17 06/03/17 History 1,000 mg Softgel] Allergies Allergy/AdvReac Type Severity Reaction Status Date / Time No Known Allergies Allergy Verified 06/03/17 15:49 Exam Vital Signs: Temperature 99.1 F 06/03/17 15:30 Pulse Rate 80 06/03/17 17:37 Respiratory Rate 20 06/03/17 15:30 Blood Pressure 148/84 H 06/03/17 15:37 Pulse Oximetry 92 06/03/17 16:15 Telemetry Rhythm: Sinus Rhythm Height/Weight/BMI: Height 1.85 m Weight 86.5 kg - Constitutional Present: mild distress, thin - Routine HEENT Exam Head: Present: normocephalic Eye: Present: EOMI. Absent: conjunctival icterus, scleral injection ENT: Present: mucous membranes dry, oropharynx clear - Routine Neck Exam Present: supple. Absent: lymphadenopathy - Routine Respiratory Exam Present: CTA bilaterally - Routine Cardiovascular Exam Present: RRR, S1, S2 - Routine Abdominal Exam Present: soft, normoactive bowel sounds, non distended, non tender - Routine Extremities Exam Present: no edema, pulses intact - Routine Skin Exam Present: intact, dry, warm - Routine Neurological Exam Present: alert, oriented X3, CN II-XII intact, normal speech. Absent: sensory deficit, motor deficit, facial asymmetry - Routine Psychiatric Exam Present: cooperative. Absent: normal affect (drowsy; flat affect) Results - Labs CBC & Chem 7: 06/03/17 16:13 06/03/17 16:13 - ABG Interpretation Attestation: I reviewed and interpreted this ABG. Interpretation: abnormal - ECG Data Tracing #1 I reviewed this ECG and interpreted as documented below: sinus incomplete RBBB No ST elevation/depression good R wave progression - Imaging and Cardiology Chest x-ray Status: image reviewed by me (no failure or pneumonia seen) Assessment and Plan (1) Hypokalemia Current visit: Yes Status: Acute Assessment and Plan: IMPRESSION Hypokalemia Hyponatremia Elevated lipase elevated LFTs hypoxemia; resp alkalosis N/V, abdominal pain HTN BPH Back pain PLAN Admit, observation status. With hypoxemia - check CTA to r/o PE. Lovenox 1.5 mg/kg x1 + SCDs. IVF - NS with KCl 20 mEq @ 125 mL/hr Diet - regular as tolerated. Sx mgt - Zofran, Reglan, Dilaudid PRN Trend lipase & K closely. Repeat labs in am. Monitor on tele; continuous sats. Hold home meds for now - monitor for hemodynamic stability prior to resuming. [facility] records reviewed - LFTs were normal on 05/26/17. D/W attending Dr. Castle. DVT Prophylaxis: SCD's, Lovenox Resuscitation Status: Full Code Hospital Course Summary Disclaimer: The visit summary below is not to be considered part of the above Progress Note. Hospital Course: IMPRESSION Hypokalemia Hyponatremia Elevated lipase elevated LFTs hypoxemia; resp alkalosis N/V, abdominal pain HTN BPH Back pain PLAN Admit, observation status. With hypoxemia - check CTA to r/o PE. Lovenox 1.5 mg/kg x1 + SCDs. IVF - NS with KCl 20 mEq @ 125 mL/hr Diet - regular as tolerated. Sx mgt - Zofran, Reglan, Dilaudid PRN Trend lipase & K closely. Repeat labs in am. Hold home meds for now - monitor for hemodynamic stability prior to resuming. [facility] records reviewed - LFTs were normal on 05/26/17. D/W attending Dr. Castle. <John Castle IV - Last Filed: 06/03/17 19:02> History of Present Illness Date: 06/03/17 Exam Vital Signs: Temperature 99.1 F 06/03/17 15:30 Pulse Rate 80 06/03/17 17:37 Respiratory Rate 20 06/03/17 15:30 Blood Pressure 148/84 H 06/03/17 15:37 Pulse Oximetry 92 06/03/17 16:15 Results - Labs CBC & Chem 7: 06/03/17 16:13 06/03/17 16:13 - ABG Interpretation ABG results: 06/03/17 18:15 ABG pH 7.630 H* ABG pCO2 28 L ABG pO2 53 L ABG HCO3 30 H ABG Total CO2 30.4 H ABG O2 Saturation 93.0 L ABG Base Excess 8.7 H Assessment and Plan (1) Hypokalemia Current visit: Yes Status: Acute Assessment and Plan: I have independently interviewed and examined the patient. I have reviewed the medical record. The plan has been discussed and formulated with CORPORATE TRAVEL AGENT as above with the additions below. This is a 61-year-old male who began having n/v/d last Tuesday. He has had subjective fever and chills. His says he wrapped himself in a blanket and he had not been very active. He has eaten sparingly during the past few days but has tried to drink water and Gatorade. His last stool, which was loose, was three days ago and the n/v stopped before that. The patient has been having some soa. He denies cough or chest pain. He had epigastric abdominal pain initially, but that has resolved. Labs, radiology reviewed. Patient dyspneic but lungs clear. Heart RRR w/o murmur. Abdomen s/nt/nd +bs. No edema. CN II-XII intact, a&o Hypokalemia Hyponatremia Elevated lipase elevated LFTs hypoxemia; resp alkalosis N/V, abdominal pain HTN BPH Back pain Patient being placed in observation status. Correct K. IVF. Monitor lipase, troponin. R/o PE with CTA. Will make regular diet available. Antiemetics prn. Hold home meds for now. Hospital Course Summary Disclaimer: The visit summary below is not to be considered part of the above Progress Note.
[2017-06-03] MEDS ORDERED: ENOXAPARIN 30 MG/0.3 ML INJECTION SQ ONE (18:32)
[2017-06-03] MEDS ORDERED: METOCLOPRAMIDE 10mg/2ml INJECTION IVP PRN (18:34)
[2017-06-03] MEDS ORDERED: ONDANSETRON 4 MG/2 ML INJECTION IVP PRN (18:34)
[2017-06-03] MEDS ORDERED: HYDROMORPHONE 2 MG/ML INJECTION IVP PRN (18:34)
[2017-06-03] MEDS ORDERED: IOHEXOL 350mg/ml 75ml INJECTION ONE (18:44)
[2017-06-03] MEDS ORDERED: NS 100 ML ONE (18:44)
[2017-06-03] MEDS ORDERED: ENOXAPARIN 150 MG/ML INJECTION SQ ONE (18:45)
[2017-06-03] MEDS ORDERED: SALINE FLUSH 10ml SYRINGE ONE (18:45)
[2017-06-03] MEDS: ACETAMINOPHEN 325 MG TABLET PO PRN (21:07)
[2017-06-03] MEDS: NS 1,000 ML IV SCH (21:10)
[2017-06-03] MEDS: AZITHROMYCIN IV 500 MG in NS 250ml 250 ML IV SCH (22:42)
[2017-06-04] MEDS: CEFTRIAXONE 1 G in NS 100 ML IV SCH ×2 (01:06→19:43)
[2017-06-04] MEDS: NS with KCL 20 mEq 1,000 ML IV SCH ×2 (01:07→12:06)
[2017-06-04 02:55] VITALS: BMI 25.1
[2017-06-04] MEDS: NS 1,000 ML IV SCH (05:11)
[2017-06-04] MEDS: ACETAMINOPHEN 325 MG TABLET PO PRN ×2 (07:52→17:16)
--- NOTE | 2017-06-04 11:51 | Progress Note ---
<Kallie Hutchison D - Last Filed: 06/04/17 11:42> - Date 06/04/17 Subjective: Song was seen before breakfast. He was c/o feeling very hot - indeed he was extremely diaphoretic and sweat was dripping down his forehead. He had an elevated temp of 100.1 earlier this morning and received Tylenol. He denied feeling short of breath but was slightly tachypneic and was hypoxic at 86% briefly last evening. 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 Objective Vital signs: Temperature 100.1 F 06/04/17 07:43 Pulse Rate 90 06/04/17 08:00 Respiratory Rate 20 06/04/17 07:43 Blood Pressure 140/84 H 06/04/17 07:43 Pulse Oximetry 93 06/04/17 07:43 Height/Weight/BMI: Height 1.85 m Weight 84.1 kg Body Mass Index 25.1 - Constitutional Present: mild distress, well nourished, well developed, thin, diaphoretic - Routine HEENT Exam Head: Present: normocephalic Eye: Present: PERRL. Absent: conjunctival icterus ENT: Present: oropharynx clear - Routine Respiratory Exam Present: decreased breath sounds (LLL), respiratory distress (slightly tachypneic 22-24 ), crackles (LLL) - Routine Cardiovascular Exam Present: RRR, S1, S2 - Routine Abdominal Exam Present: soft, normoactive bowel sounds, non tender - Routine Extremities Exam Present: no edema, pulses intact - Routine Musculoskeletal Exam Musculoskeletal: Present: moving extremities well - Routine Skin Exam Present: warm. Absent: dry - Routine Neurological Exam Present: alert, oriented X3, CN II-XII intact, normal speech - Routine Psychiatric Exam Present: normal affect, normal thought process, cooperative Results - Labs CBC & Chem 7: 06/04/17 04:31 06/04/17 04:31 - ABG Interpretation ABG results: 06/03/17 18:15 ABG pH 7.630 H* ABG pCO2 28 L ABG pO2 53 L ABG HCO3 30 H ABG Total CO2 30.4 H ABG O2 Saturation 93.0 L ABG Base Excess 8.7 H Assessment and Plan (1) Hypokalemia Current visit: Yes Status: Acute Assessment and Plan: IMPRESSION Hypokalemia Hyponatremia CAP - LLL Elevated lipase elevated LFTs hypoxemia; resp alkalosis hypocalcemia N/V, abdominal pain - improved HTN BPH Back pain PLAN Hypoxic yesterday late afternoon @ 86% on room air. Has not required supplemental oxygen. CTA cannot r/o PE; shows LLL pneumonia. Jayden/azithro were started yesterday. Give Lovenox 1.5 mg/kg x1 again this evening and await final radiologic read. Start acapella; Pulmicort BID; and DuoNeb QID PRN. Electrolytes improved but still abnormal. Na 129 and K 3.1. Continue NS with KCl ; add KDur 20 mEq with meals. Stool panel ordered d/t diarrhea x4 overnight. Tmax 100.6 last evening without other SIRS criteria. He is hemodynamically stable. LFTs improved though still slightly elevated. Lipase increased slightly to 602 but he is asymptomatic - could be inflammatory response from pneumonia rather than pancreatitis. Restart home meds except for HCTZ. Change status to inpatient based on persistent electrolyte abnormalities despite replacement. Continues to have GI losses so is at risk for ongoing electrolyte disturbances. Continues to have fever and LLL pneumonia seen on CT scan, for which treatment has been initiated. Hospital Course Summary Disclaimer: The visit summary below is not to be considered part of the above Progress Note. Hospital Course: IMPRESSION Hypokalemia Hyponatremia CAP - LLL Elevated lipase elevated LFTs hypoxemia; resp alkalosis hypocalcemia N/V, abdominal pain - improved HTN BPH Back pain PLAN Admit, observation status. With hypoxemia - check CTA to r/o PE. Lovenox 1.5 mg/kg x1 + SCDs. IVF - NS with KCl 20 mEq @ 125 mL/hr Diet - regular as tolerated. Sx mgt - Zofran, Reglan, Dilaudid PRN Trend lipase & K closely. Repeat labs in am. Hold home meds for now - monitor for hemodynamic stability prior to resuming. [facility] records reviewed - LFTs were normal on 05/26/17. D/W attending Dr. Castle. 06/04/17 PLAN Hypoxic yesterday late afternoon @ 86% on room air. Has not required supplemental oxygen. CTA cannot r/o PE; shows LLL pneumonia. Jayden/azithro were started yesterday. Give Lovenox 1.5 mg/kg x1 again this evening and await final radiologic read. Start acapella; Pulmicort BID; and DuoNeb QID PRN. Electrolytes improved but still abnormal. Na 129 and K 3.1. Continue NS with KCl ; add KDur 20 mEq with meals. Stool panel ordered d/t diarrhea x4 overnight. Tmax 100.6 last evening without other SIRS criteria. He is hemodynamically stable. LFTs improved though still slightly elevated. Lipase increased slightly to 602 but he is asymptomatic - could be inflammatory response from pneumonia rather than pancreatitis. Restart home meds except for HCTZ. Change status to inpatient based on persistent electrolyte abnormalities despite replacement. Continues to have GI losses so is at risk for ongoing electrolyte disturbances. Continues to have fever and LLL pneumonia seen on CT scan, for which treatment has been initiated. <John Castle IV - Last Filed: 06/04/17 14:28> - Date 06/04/17 Objective Vital signs: Temperature 100.1 F 06/04/17 07:43 Pulse Rate 90 06/04/17 08:00 Respiratory Rate 22 06/04/17 13:40 Blood Pressure 140/84 H 06/04/17 07:43 Pulse Oximetry 94 06/04/17 13:40 Results - Labs CBC & Chem 7: 06/04/17 04:31 06/04/17 04:31 Assessment and Plan (1) Hypokalemia Current visit: Yes Status: Acute Assessment and Plan: I have independently interviewed and examined the patient. I have reviewed the medical record. The plan has been discussed and formulated with DIRECTOR OF PROCUREMENT as above with the additions below. Patient had Tmax 100.6. c/o of shaking chills overnight. He ate half a hamburger for lunch and thinks his appetite might be returning. He had 4 loose stools this am, but none since. and son are bedside. All questions answered. Lungs with crackles left base. Heart rrr. Abd is s/nt/nd. No edema Continue Rocephin, zithromax. Await final read on CTA and likely will stop lovenox. Encouraging patient to be active. Lipase still elevated. Abdominal exam benign. Will recheck in am with amylase. Stool studies pending if more diarrhea. Continue IVF until patient eating better. Start oral KCl Hospital Course Summary Disclaimer: The visit summary below is not to be considered part of the above Progress Note.
[2017-06-04] MEDS: ALBUTEROL/IPRATROPIUM 2.5mg-0.5mg/3ml NEB AEROSOL PRN ×2 (13:50→19:09)
[2017-06-04] MEDS ORDERED: ENOXAPARIN 150 MG/ML INJECTION SQ ONE (18:30)
[2017-06-04] MEDS: BUDESONIDE INH.SOLN 0.5mg/2ml NEB AEROSOL SCH (19:09)
[2017-06-04] MEDS: AZITHROMYCIN IV 500 MG in NS 250ml 250 ML IV SCH (20:34)
[2017-06-05] MEDS: NS with KCL 20 mEq 1,000 ML IV SCH (04:47)
[2017-06-05] MEDS: OMEGA-3 ACID ESTERS 1 GM CAPSULE PO SCH (08:09)
[2017-06-05] MEDS: CYANOCOBALAMIN (B-12) 500mcg TABLET PO SCH (08:09)
[2017-06-05] MEDS: ASPIRIN 325 MG TABLET PO SCH (08:09)
[2017-06-05] MEDS: MULTI-VITAMIN PLAIN TABLET PO SCH (08:09)
[2017-06-05] MEDS: ASCORBIC ACID 500 MG TABLET PO SCH (08:09)
[2017-06-05] MEDS: BUDESONIDE INH.SOLN 0.5mg/2ml NEB AEROSOL SCH ×2 (08:34→19:25)
[2017-06-05] MEDS: ALBUTEROL/IPRATROPIUM 2.5mg-0.5mg/3ml NEB AEROSOL PRN ×2 (08:34→19:25)
--- NOTE | 2017-06-05 10:37 | CT Scan Report ---
Indication: hypoxia PROCEDURE: CT angio pulm emboli: Encounter: Initial Comparison: Chest x-ray from the same date Technique: Axial CT pulmonary angiographic phase images were performed through the chest after the administration of intravenous contrast. Coronal and Sagittal MIP reconstructed images were created and reviewed. Automated Exposure Control and Iterative Reconstruction dose reducing techniques were utilized. Contrast: Omnipaque 350 62 mL Findings: Pulmonary arteries: Exam is diagnostic to the segmental pulmonary arterial level. No filling defects identified to suggest a pulmonary embolus. Motion artifact limits evaluation of the subsegmental pulmonary arteries. Other findings: Mild paraseptal emphysema. Significant consolidation in the left lower lobe with air bronchograms. Minimal dependent atelectasis in the right lung. No pneumothorax or pulmonary mass. The central airways are patent. No axillary or mediastinal adenopathy. Heart size is within normal limits. No pericardial effusion. The upper abdomen shows no acute findings. Impression: No pulmonary embolus. Left lower lobe pneumonia. There is a preliminary report by virtual radiologic. .
--- NOTE | 2017-06-05 10:43 | XRay Report ---
INDICATION: dyspnea, fever PROCEDURE: CHEST 2-VIEWS UPRIGHT (PA & LAT) Encounter: Initial COMPARISON: CT angiogram of the chest from the same date FINDINGS: Left lower lobe airspace consolidation. Right lung is clear. There is no pleural effusion or pneumothorax. The heart size, mediastinal contours and pulmonary vascularity are within normal limits. There is no significant skeletal abnormality. IMPRESSION: Left lower lobe pneumonia. There is a preliminary report by virtual radiologic. .
--- NOTE | 2017-06-05 13:29 | Progress Note ---
<Kayla Haider D - Last Filed: 06/05/17 13:26> - Date 06/05/17 Subjective: Floyd is seen today in follow up. He has been [place] in [place] with his [place]. Reports feeling fairly well. Abdomen is distended, but he is unsure if this is different than normal when asked. Is not c/o SOA today. Chart does continue to reflect SOA with activity. Stools are slowing. Objective Vital signs: Temperature 98.1 F 06/05/17 07:29 Pulse Rate 63 06/05/17 10:44 Respiratory Rate 22 06/05/17 10:44 Blood Pressure 159/89 H 06/05/17 07:29 Pulse Oximetry 97 06/05/17 10:44 Height/Weight/BMI: Weight 86.5 kg - Constitutional Present: no acute distress, well nourished, well developed, cooperative - Routine HEENT Exam Head: Present: normocephalic, atraumatic Eye: Present: EOMI, PERRL. Absent: conjunctival icterus, scleral injection ENT: Present: mucous membranes moist - Routine Respiratory Exam Present: dyspnea, crackles (left base), diminished air movement - Routine Cardiovascular Exam Present: RRR, S1, S2 - Routine Abdominal Exam Present: soft, non tender, distended. Absent: normoactive bowel sounds ( hypoactive BS) - Routine Extremities Exam Present: edema (trace), non tender, normal capillary refill - Routine Back/Spine/Pelvis Exam Back/Spine: Present: full ROM - Routine Musculoskeletal Exam Musculoskeletal: Present: no clubbing or cyanosis, moving extremities well - Routine Skin Exam Present: intact, dry, warm - Routine Neurological Exam Present: alert, oriented X3, moving all extremities - Routine Psychiatric Exam Present: normal affect, cooperative Results - Labs CBC & Chem 7: 06/05/17 03:58 06/05/17 03:58 - Impressions reviewed imagin Assessment and Plan (1) Hypokalemia Current visit: Yes Status: Acute Assessment and Plan: IMPRESSION CAP - LLL Hypokalemia Hyponatremia Elevated lipase elevated LFTs hypoxemia; resp alkalosis hypocalcemia N/V, abdominal pain - improved HTN BPH Back pain Plan: 06/05/17 Respiratory status is improving- continue Ceftriaxone/Azithro. Remains SOA with exertion. CTA negative for PE. Continue nebs- duoneb/pulmicort. Lipase continues to trend up. Abdomen is distended, soft, non-tender. Will assess KUB today, order CT A/P in AM for further assessment. Repeat labs in AM. Order Hep Panel, Lipid panel on blood in labs today. BP is variable- continue home medications. Continue to replace KCL- slowly improving. Sodium slowly trending up as well. Check PO4. Tolerating regular diet w/o N/V. If lipase continues to climb, may need to change to clear liquids. DVT Prophylaxis: SCD's Resuscitation Status: Full Code Hospital Course Summary Disclaimer: The visit summary below is not to be considered part of the above Progress Note. Hospital Course: IMPRESSION Hypokalemia Hyponatremia CAP - LLL Elevated lipase elevated LFTs hypoxemia; resp alkalosis hypocalcemia N/V, abdominal pain - improved HTN BPH Back pain PLAN Admit, observation status. With hypoxemia - check CTA to r/o PE. Lovenox 1.5 mg/kg x1 + SCDs. IVF - NS with KCl 20 mEq @ 125 mL/hr Diet - regular as tolerated. Sx mgt - Zofran, Reglan, Dilaudid PRN Trend lipase & K closely. Repeat labs in am. Hold home meds for now - monitor for hemodynamic stability prior to resuming. [facility] records reviewed - LFTs were normal on 05/26/17. D/W attending Dr. Castle. 06/04/17 PLAN Hypoxic yesterday late afternoon @ 86% on room air. Has not required supplemental oxygen. CTA cannot r/o PE; shows LLL pneumonia. Jayden/azithro were started yesterday. Give Lovenox 1.5 mg/kg x1 again this evening and await final radiologic read. Start acapella; Pulmicort BID; and DuoNeb QID PRN. Electrolytes improved but still abnormal. Na 129 and K 3.1. Continue NS with KCl ; add KDur 20 mEq with meals. Stool panel ordered d/t diarrhea x4 overnight. Tmax 100.6 last evening without other SIRS criteria. He is hemodynamically stable. LFTs improved though still slightly elevated. Lipase increased slightly to 602 but he is asymptomatic - could be inflammatory response from pneumonia rather than pancreatitis. Restart home meds except for HCTZ. Change status to inpatient based on persistent electrolyte abnormalities despite replacement. Continues to have GI losses so is at risk for ongoing electrolyte disturbances. Continues to have fever and LLL pneumonia seen on CT scan, for which treatment has been initiated. 06/05/17 13:37 Respiratory status is improving- continue Ceftriaxone/Azithro. Remains SOA with exertion. CTA negative for PE. Continue nebs- duoneb/pulmicort. Lipase continues to trend up. Abdomen is distended, soft, non-tender. Will assess KUB today, order CT A/P in AM for further assessment. Repeat labs in AM. Order Hep Panel, Lipid panel on blood in labs today. BP is variable- continue home medications. Continue to replace KCL- slowly improving. Sodium slowly trending up as well. Check PO4. Tolerating regular diet w/o N/V. If lipase continues to climb, may need to change to clear liquids. <John Castle IV - Last Filed: 06/05/17 15:31> - Date 06/05/17 Objective Vital signs: Temperature 97.1 F 06/05/17 14:50 Pulse Rate 64 06/05/17 14:50 Respiratory Rate 16 06/05/17 14:50 Blood Pressure 125/85 06/05/17 14:50 Pulse Oximetry 97 06/05/17 14:50 Height/Weight/BMI: Weight 86.5 kg Results - Labs CBC & Chem 7: 06/05/17 03:58 06/05/17 03:58 Assessment and Plan (1) Hypokalemia Current visit: Yes Status: Acute Assessment and Plan: I have independently interviewed and examined the patient. I have reviewed the medical record. The plan has been discussed and formulated with PROVIDER NETWORK ANALYST as above with the additions below. Patient says he is feeling better, and he is hoping to go home soon. Says he is anxious being here. He says his appetite is OK. His brought food from home. He denies abdominal pain. Says he is not coughing much. One formed stool, no further loose stools or nausea. Lungs still have crackles at bases. Heart is regular. Abdomen distended, nontender with bowel sounds. Continue abx for CAP. ? whether pancreatitis was resolving and now lipase going up b/c patient is eating. Amylase pending. Follow lipase. CT a/p in am. Will replace K iv and continue oral supplement. Encouraged him to remain active. Hospital Course Summary Disclaimer: The visit summary below is not to be considered part of the above Progress Note. Hospital Course: 06/05/17 15:31 Continue abx for CAP. ? whether pancreatitis was resolving and now lipase going up b/c patient is eating. Amylase pending. Follow lipase. CT a/p in am. Will replace K iv and continue oral supplement. Encouraged him to remain active.
[2017-06-05] MEDS ORDERED: NS FLUSH BAG 500ml IV PRN (17:02)
[2017-06-05] MEDS: POTASSIUM CHLORIDE PREMIX 10 MEQ/100 ML BAG IV SCH ×3 (17:17→22:29)
[2017-06-05] MEDS: SALINE FLUSH 10ml SYRINGE IV PRN (17:17)
[2017-06-05] MEDS: CEFTRIAXONE 1 G in NS 100 ML IV SCH (19:39)
[2017-06-05] MEDS: AZITHROMYCIN IV 500 MG in NS 250ml 250 ML IV SCH (20:35)
[2017-06-06] MEDS: POTASSIUM CHLORIDE PREMIX 10 MEQ/100 ML BAG IV SCH (00:04)
[2017-06-06] MEDS: NS with KCL 20 mEq 1,000 ML IV SCH ×2 (01:11→03:05)
[2017-06-06] MEDS ORDERED: IOHEXOL 300mg/ml 100ml INJECTION ONE (07:16)
[2017-06-06] MEDS ORDERED: SALINE FLUSH 10ml SYRINGE ONE (07:17)
[2017-06-06] MEDS ORDERED: NS 100 ML ONE (07:17)
[2017-06-06 07:34] VITALS: PULSE 71; TEMP 96.5; O2SAT 97
[2017-06-06 07:51] VITALS: BP 146/84
[2017-06-06] MEDS: ASCORBIC ACID 500 MG TABLET PO SCH (09:01)
[2017-06-06] MEDS: ASPIRIN 325 MG TABLET PO SCH (09:01)
[2017-06-06] MEDS: OMEGA-3 ACID ESTERS 1 GM CAPSULE PO SCH (09:02)
[2017-06-06] MEDS: MULTI-VITAMIN PLAIN TABLET PO SCH (09:02)
[2017-06-06] MEDS: CYANOCOBALAMIN (B-12) 500mcg TABLET PO SCH (09:02)
--- NOTE | 2017-06-06 10:18 | XRay Report ---
Indication: abd distention PROCEDURE: XR KUB w upright: Encounter: Initial Comparison: None. Findings: The included portions of the lung bases are clear. Heart size normal. No pleural effusion. There is scattered gas and stool in the abdomen without evidence of obstruction or free air. No soft tissue mass or organomegaly. No abnormal calcification. No definite bony destructive process. IMPRESSION: No evidence for obstruction or perforation. .
[2017-06-06] MEDS: BUDESONIDE INH.SOLN 0.5mg/2ml NEB AEROSOL SCH (10:23)
[2017-06-06] MEDS: ALBUTEROL/IPRATROPIUM 2.5mg-0.5mg/3ml NEB AEROSOL PRN (10:23)
[2017-06-06 10:25] VITALS: RESP 18
--- NOTE | 2017-06-06 12:14 | CT Scan Report ---
Indication: Elevated lipase PROCEDURE: CT abdomen pelvis w con: Encounter: Initial Comparison: None. Findings: There is some dense consolidation involving the left lower lobe with interstitial alveolar parenchymal opacity. No definite pleural effusion. Heart size is normal. The remainder of the lungs are moderately emphysematous appearance. The liver and spleen are unremarkable. Gallbladder is thin-walled and nondistended without definite stones. Adrenal glands are normal. Kidneys enhance homogeneously and symmetrically. There may be a trace edema around the right kidney outlining throughout his fascia. There is no definite peripancreatic edema. There is no definite edema of the anterior pararenal space. There is moderate calcific atherosclerotic disease of the abdominal aorta without aneurysmal dilation. There is also moderate calcific atherosclerotic disease of the SMA without definite flow-limiting stenosis at least of the origin. No retroperitoneal or mesenteric adenopathy. Pelvis: A normal appendix is not identified with certainty. The urinary bladder is not distended. There is no pelvic sidewall adenopathy. No definite bony destructive process. Impression: Trace asymmetric edema outlining [place] to is fascia on the right. No clear pancreatic edema or edema extending into the anterior pararenal space. Nonspecific consolidation in the posterior inferior left lower lobe with interstitial alveolar appearance. Follow-up to resolution is recommended exclude underlying neoplasm. .
--- NOTE | 2017-06-06 13:13 | Discharge Summary ---
<Kallie Hutchison Reece - Last Filed: 06/06/17 13:07> Discharge Information Date of admission: 06/04/17 11:53 Anticipated date of discharge: 06/06/17 Attending Physician: John Castle IV, MD Primary care physician: Bg Benjamin MD - Discharge Diagnosis (1) Hypokalemia Status: Acute CAP - LLL Hypokalemia - RESOLVED Hyponatremia - RESOLVED Elevated lipase - TRENDING UP BUT ASYMPTOMATIC elevated LFTs hypoxemia; resp alkalosis - RESOLVED - Laboratory Labs: 06/06/17 04:44 06/06/17 04:44 - Radiology Radiology: CT angio pulm emboli Date of Exam: 06/03/17 Findings: Pulmonary arteries: Exam is diagnostic to the segmental pulmonary arterial level. No filling defects identified to suggest a pulmonary embolus. Motion artifact limits evaluation of the subsegmental pulmonary arteries. Other findings: Mild paraseptal emphysema. Significant consolidation in the left lower lobe with air bronchograms. Minimal dependent atelectasis in the right lung. No pneumothorax or pulmonary mass. The central airways are patent. No axillary or mediastinal adenopathy. Heart size is within normal limits. No pericardial effusion. The upper abdomen shows no acute findings. IMPRESSION: No pulmonary embolus. Left lower lobe pneumonia. CHEST 2-VIEWS Date of Exam: 06/03/17 FINDINGS: Left lower lobe airspace consolidation. Right lung is clear. There is no pleural effusion or pneumothorax. The heart size, mediastinal contours and pulmonary vascularity are within normal limits. There is no significant skeletal abnormality. IMPRESSION: Left lower lobe pneumonia. XR KUB Date of Exam: 06/05/17 Findings: The included portions of the lung bases are clear. Heart size normal. No pleural effusion. There is scattered gas and stool in the abdomen without evidence of obstruction or free air. No soft tissue mass or organomegaly. No abnormal calcification. No definite bony destructive process. IMPRESSION: No evidence for obstruction or perforation. CT abdomen pelvis w con Date of Exam: 06/06/17 Findings: There is some dense consolidation involving the left lower lobe with interstitial alveolar parenchymal opacity. No definite pleural effusion. Heart size is normal. The remainder of the lungs are moderately emphysematous appearance. The liver and spleen are unremarkable. Gallbladder is thin-walled and nondistended without definite stones. Adrenal glands are normal. Kidneys enhance homogeneously and symmetrically. There may be a trace edema around the right kidney outlining throughout his fascia. There is no definite peripancreatic edema. There is no definite edema of the anterior pararenal space. There is moderate calcific atherosclerotic disease of the abdominal aorta without aneurysmal dilation. There is also moderate calcific atherosclerotic disease of the SMA without definite flow-limiting stenosis at least of the origin. No retroperitoneal or mesenteric adenopathy. Pelvis: A normal appendix is not identified with certainty. The urinary bladder is not distended. There is no pelvic sidewall adenopathy. No definite bony destructive process. IMPRESSION: Trace asymmetric edema outlining [place] to is fascia on the right. No clear pancreatic edema or edema extending into the anterior pararenal space. Nonspecific consolidation in the posterior inferior left lower lobe with interstitial alveolar appearance. Follow-up to resolution is recommended exclude underlying neoplasm. History of Present Illness HPI: Song Martins is a 61 y/o who became sick with n/v/d and abd pain on 05/28/17. He was actually seen by Dr. Benjamin on 05/26 for a routine physical, and wonders if he might have picked up a bug there. Despite the GI losses his has been encouraging plenty of water and gatorade, even an ensure now and then. He's had no appetite whatsoever even though his has offered a variety of dining options. Not sure if he's lost weight. He's had a little diarrhea - no blood seen in either stools or emesis. Last BM was around 05/31/17. He's had subjective fevers/chills. His abdominal pain was severe at first - tended to bother him just above his umbilicus and epigastric. He described it as cramping. No problems with indigestion or reflux; he has not had previous abdominal pain assoc. with dietary intake. He denies any sinus problems, allergies. No cough/congestion. Despite feeling very weak and slightly dizzy he has not had any falls/trauma. He denies any visual changes. No dysuria or urinary urgency/frequency. He denies leg swelling. He denies any focal neuro deficits or paresthesias. With treatment failure at home and worsening sx, his Nikia brought him to [facility] ED on 06/03/17. CBC was unremarkable. Electrolytes were abnormal: Na low at 128, K low at 2.6 - these were replaced in the ED. Platelets were low at 124; AST was elevated at 144, AST high at 140. Lipase was high at 563. CXR was unremarkable. EKG was negative for acute ischemic changes. Given his presentation Dr. Castle was notified and the patient was admitted to observation for treatment of his electrolyte disturbances. Objective Vital signs: Temperature 96.5 F L 06/06/17 07:33 Pulse Rate 71 06/06/17 07:33 Respiratory Rate 18 06/06/17 10:23 Blood Pressure 146/84 H 06/06/17 07:50 Pulse Oximetry 97 06/06/17 10:23 Height/Weight/BMI: Weight 86.5 kg - Constitutional Present: no acute distress, well nourished, well developed - Routine HEENT Exam Eye: Absent: conjunctival icterus ENT: Present: mucous membranes moist - Routine Respiratory Exam Present: crackles (LEFT LOWER) - Routine Cardiovascular Exam Present: RRR, S1, S2 - Routine Abdominal Exam Present: soft, normoactive bowel sounds, non tender, distended (MILD) - Routine Extremities Exam Present: edema (TRACE TO ANKLES) - Routine Skin Exam Present: intact, dry, warm - Routine Neurological Exam Present: alert, oriented X3 - Routine Psychiatric Exam Present: normal affect, normal thought process, cooperative Hospital Course This is a general summary of the patient's hospital course. For more details refer to the complete medical record. Hospital course: DISCHARGE DIAGNOSES CAP - LLL Hypokalemia - RESOLVED Hyponatremia - RESOLVED Elevated lipase - TRENDING elevated LFTs hypoxemia; resp alkalosis hypocalcemia thrombocytopenia - RESOLVED Leukopenia - WBC 3.2 on DC N/V, abdominal pain - RESOLVED HTN BPH Back pain HOSPITAL SUMMARY Mr. Martins was admitted to observation status on 06/03/17 for hypokalemia and hyponatremia. A CT scan of his chest was obtained due to hypoxemia noted on ABG. This showed LLL pneumonia but no definite PE (motion artifact limited evaluation of the subsegmental pulmonary arteries). IVF were started and KCl was given as IV bolus. Since abdominal symptoms had largely resolved, he was allowed a regular diet. He was started on Rocephin/azithromycin to cover for CAP. He had a brief episode of hypoxia at 86% but did not require intervention. He had a Tmax of 100.6. Respiratory panel was negative. Despite IV replacement his Na and K remained abnormal on 06/04/17 and his status was changed to inpatient. He had four episodes of diarrhea - this was sent to the lab but GI panel was negative. Over the following 48 hours his electrolytes stabilized and he was eating/drinking well. He did not have any further abdominal pain or GI symptoms. Hypoxia resolved. Curiously, however, his lipase continued to trend up on a daily basis and was 950 by 06/06/17. LFTs remained consistently elevated but had been trending down. Phosphorous was low at 2.0 on 06/05/17 but since he was eating adequately this was not replaced. CT scan of his abdomen/ pelvis was done, and demonstrated trace asymmetric edema around the right kidney and fascia; but there was no peripancreatic edema & the gallbladder was thin-walled and nondistended. Radiologist recommends f/u resolution for the left lower lobe consolidation to exclude neoplastic process. He was able to be discharged on 06/06/17: Na was 137; K was 3.9; Ca 8.0; Mg 2.1; ASt 87; ALT 127; lipase 950. Hepatitis A/B/C were pending at time of discharge. Recommend f/u with Dr. Benjamin this week regarding pneumonia, elevated lipase/LFTs, abnormal CT report, leukopenia, low phos level. Rx Keflex (500 mg QID x 4 days) and KDur (20 mEq daily x 7 days) were provided. HCTZ was discontinued. The patient was encouraged to withhold from alcohol use. He was discharged home with his in stable condition. Time spent with patient: discharge greater than 30 minutes Discharge Plan - Discharge Disposition Discharge Date: 06/06/17 Disposition: Discharged Home, Self-Care *Condition: Stable *Reason For Visit: persistant hyponatremia & Hypokalemia, fever & syeda - Discharge Medications *Discharge Medications: New Potassium Chloride [K-Dur] 1 tab PO DAILY #7 tab CephALEXin [Keflex] 500 mg PO QID #16 cap Continue Cyanocobalamin (Vitamin B-12) [Vitamin B-12] 500 mcg SL DAILY Ascorbic Acid [Vitamin C] 1,000 mg PO DAILY Arrington-3/Dha/Epa/Fish Oil [Fish Oil 1,000 mg Softgel] 1,000 mg PO DAILY Aspirin 325 mg PO DAILY #0 Multivitamin [Multivitamins] 1 cap PO DAILY Nebivolol [Bystolic] 5 mg PO DAILY Discontinued HydroCHLOROthiazide [Hydrodiuril] 25 mg PO WB - Discharge Packet/Instructions *Diet: Regular *Activity: As tolerated. No restrictions. *Pain Management/Treatment: Tylenol as needed. Do not exceed 4g per day. *Wound Care: N/A Additional Instructions: Follow up with Dr. Benjamin this week regarding pneumonia, elevated lipase/LFTs, abnormal CT report, leukopenia, low phos level. Recommend for you to abstain from drinking alcohol. Rx transmitted to [facility]: KDur for low potassium - take with food & Keflex (antibiotic) for pneumonia. *Expected Signs/Symptoms: You may be a little weak and fatigued from your illness, but this should gradually improve. *Notify Physician if: Abdominal pain, vomiting or diarrhea, fever, difficulty breathing or chest pain, confusion, or any new concerns. *During Business Hours Contact: Dr. Benjamin's office. *After Business Hours Contact: Contact [facility] and ask to speak with the on-call provider. If symptoms are dire, either call 911 or come back to the ED for evaluation. *Pending Lab/Results: Follow up w/your PCP (Hepatitis studies are pending.) - Referrals/Follow Up *Referrals/Follow Up: Bg Benjamin MD [Family Provider] - (APPOITMENT WITH DR Jose Luis BENJAMIN ON 06/10 AT 1PM.) - Patient Handouts Patient Handouts: Hyponatremia (GEN), Hypokalemia (GEN) - Dismissal Complete Discharge Instructions are:: Complete <John Castle IV - Last Filed: 06/06/17 14:46> Discharge Information Date of admission: 06/04/17 11:53 Attending Physician: John Castle IV, MD Primary care physician: Bg Benjamin MD - Discharge Diagnosis (1) Hypokalemia Status: Acute - Laboratory Labs: 06/06/17 04:44 06/06/17 04:44 Objective Vital signs: Temperature 96.5 F L 06/06/17 07:33 Pulse Rate 71 06/06/17 07:33 Respiratory Rate 18 06/06/17 10:23 Blood Pressure 146/84 H 06/06/17 07:50 Pulse Oximetry 97 06/06/17 10:23 Height/Weight/BMI: Weight 86.5 kg Hospital Course This is a general summary of the patient's hospital course. For more details refer to the complete medical record. Hospital course: I have independently interviewed and examined the patient. I have reviewed the medical record. The plan has been discussed and formulated with BARBER STYLIST as above with the additions below. Patient is ambulatory on RA without dyspnea. He says he is ready to go home. He denies abdominal pain, nausea, and diarrhea. Says he is eating OK. Lungs with faint crackles. Heart is regular. Abdomen distended, nontender with bowel sounds. Abx changed to Keflex. Have d/w patient and CT results and that he should f /u with Dr. Benjamin within the week. Message left with Dr. Benjamin's office.
== END 2017-06-06 14:35 | disposition home or self-care (01) | DRG 640 ==
LOC: MED 15:28 → ED 15:28 → MED 19:45
PROVIDERS: ADMIT Hospitalist; ATTEND Hospitalist